=== PATIENT | female | born 1970 | race Two or more races ===

== ENCOUNTER 2023-08-30 14:19 | Inpatient (IN) | payer BC, OTHER ==
[~2023-08-30] VITALS: Ht 154.9 cm; Wt 78.4 kg
[2023-08-30 15:53] LABS: Basophils # (auto) 0.1 10 ^3/uL (0-0.2); Basophils % (auto) 0.8 % (0.0-2.0); Eosinophils # (auto) 0 10 ^3/uL (0-0.8); Eosinophils % (auto) 0.6 % (0.0-7.0); Hemoglobin 14.8 g/dL (12.2-16.2); Lymphocytes # (auto) 1.4 10 ^3/uL (0.4-5.4); Lymphocytes % (auto) 17.8 % (10.0-50.0); Mean Corpuscular Hemoglobin 30.1 pg (28.0-32.0); Mean Corpuscular Hgb Conc. 34.3 g/dL (32.0-36.0); Mean Corpuscular Volume 87.8 fL (80.0-100.0); Monocytes # (auto) 0.4 10 ^3/uL (0-1.3); Monocytes % (auto) 4.5 % (0.0-12.0); Neutrophils # (auto) 6.1 10 ^3/uL (1.6-8.6); Neutrophils % (auto) 76.3 % (37.0-80.0); Nucleated Red Blood Cells % 0.1 %; Red Cell Distribution Width 12.7 % (11.8-14.3)
[2023-08-30 15:55] LABS: Urine Amorphous Crystal FEW /hpf (None Seen); Urine Bacteria FEW /hpf (None Seen); Urine Blood Negative /uL (Negative); Urine Clarity Turbid (Clear); Urine Color Colorless (Yellow); Urine Protein, UAD Negative (Negative); Urine Specific Gravity 1.002 (1.001-1.035); Urine Urobilinogen Normal (Negative); Urine WBC 5 /hpf (0 - 5)
[2023-08-30 16:13] LABS: Alanine Aminotransferase 20 U/L (7-40); Alkaline Phosphatase 107 U/L (46-116); Anion Gap 7 (5-15); Aspartate Aminotransferase 18 U/L (13-40); BUN/Creatinine Ratio 12.5 (10.0-20.0); Blood Urea Nitrogen 8 mg/dL (9-23); Calcium 9.9 mg/dL (8.5-10.1); Carbon Dioxide 27 mmol/L (20-30); Chloride 107 mmol/L (98-107); Glucose 107 mg/dL (74-106); Potassium 3.5 mmol/L (3.5-5.1); Sodium 141 mmol/L (136-145); Total Protein 8.2 g/dL (5.7-8.2)
[2023-08-30] MEDS ORDERED: MORPHINE SULFATE INJ 2 MG/ml SYRG IV PRN (21:15)
[2023-08-30] MEDS ORDERED: NITROGLYCERIN 0.4 MG SL TAB SL PRN (21:15)
[2023-08-30] MEDS: ASPirin 325 MG TAB PO ONE (21:40)
[2023-08-30] MEDS: ONDANSETRON HCL 4 MG/2 ML VIAL IV PRN (23:17)
[2023-08-30] MEDS: METOPROLOL SUCCINATE XL 50 MG TAB PO ONE (23:27)
[2023-08-31] VITALS (9 sets, daily range): BP systolic 104–128; BP diastolic 66–72; PULSE 57–77; RESP 16–18; TEMP 97.5–98.1; O2SAT 93–100
[2023-08-31] MEDS ORDERED: CLON0.1T PO (03:18)
[2023-08-31] MEDS ORDERED: SERT25TA84 PO (03:18)
[2023-08-31 07:12] LABS: Anion Gap 7 (5-15); Calcium 9.7 mg/dL (8.7-10.4); Carbon Dioxide 25 mmol/L (20-30); Chloride 106 mmol/L (98-107); Potassium 3.5 mmol/L (3.5-5.1); Sodium 138 mmol/L (136-145)
[2023-08-31 07:18] LABS: BUN/Creatinine Ratio 11.6 (10.0-20.0); Blood Urea Nitrogen 8 mg/dL (9-23); Glucose 97 mg/dL (74-106)
[2023-08-31] MEDS: ENOXAPARIN SOD 40 MG/0.4 ML SYRINGE SC SCH (09:07)
[2023-08-31] MEDS: LISINOPRIL 5 MG TAB PO SCH (09:08)
[2023-08-31] MEDS: ASPirin 81 mg TAB PO SCH (09:08)
[2023-08-31] MEDS: ACETAMINOPHEN 325 MG TAB PO PRN (09:08)
[2023-09-01] VITALS (7 sets, daily range): BP systolic 98–132; BP diastolic 60–83; PULSE 56–84; RESP 16–18; TEMP 97.5–98.1; O2SAT 96–98
[2023-09-01 07:30] LABS: Triglycerides 104 mg/dL (< 150)
[2023-09-01 07:31] LABS: LDL Cholesterol 103 mg/dL (< 100)
[2023-09-01 07:32] LABS: Cholesterol 154 mg/dL (< 200); HDL Cholesterol 36 mg/dL (40-59)
[2023-09-01] MEDS: SERTRALINE HCL 50 MG TAB PO SCH (10:00)
[2023-09-01] MEDS: ADENOSINE 66 MG in GIVE UN-DILUTED 0 ML IV ONE (10:09)
[2023-09-02 01:00] VITALS: BP 121/76; PULSE 67; RESP 18; TEMP 98.1; O2SAT 97
[2023-09-02 05:00] VITALS: BP 122/74; PULSE 76; RESP 17; TEMP 97.6; O2SAT 99
[2023-09-02 08:00] VITALS: BP_SYST 115; BP_SYST 132; BP_DIAS 72; BP_DIAS 83; PULSE 78; PULSE 83; PULSE 87; RESP 17; RESP 18; TEMP 97.9; TEMP 98.1; O2SAT 97
[2023-09-02] MEDS ORDERED: LISI10TA34 PO ×2 (10:21→11:27)
[2023-09-02 13:00] VITALS: BP 109/71; PULSE 66; RESP 18; TEMP 97.6; O2SAT 97
[2023-09-02 13:58] VITALS: BP 115/72; PULSE 80; TEMP 97.9
== END 2023-09-02 14:58 | disposition home or self-care (01) | DRG 313 ==
LOC: ER 14:19 → TELE-CENTR 21:13 → TELE 21:13 → TELE-CENTR 23:59
PROVIDERS: ADMIT Nurse Practitioner; ATTEND Internal Medicine Geriatric Medicine
DX: R07.89 Other chest pain (principal); I20.0 Unstable angina; R00.2 Palpitations; I10 Essential (primary) hypertension; E66.9 Obesity, unspecified; E78.5 Hyperlipidemia, unspecified; Z90.49 Acquired absence of other specified parts of digestive tract; Z82.49 Family history of ischemic heart disease and other diseases of the circulatory system; Z83.3 Family history of diabetes mellitus; Z79.899 Other long term (current) drug therapy; Z68.32 Body mass index [BMI] 32.0-32.9, adult
CPT/HCPCS: 36415; 71045; 78452; 80048; 80053; 80061; 81001; 81025; 84443; 84484; 85025; 93005; 93017; 93306; G0378; J0153; J2405

== ENCOUNTER 2023-10-06 03:54 | Emergency (ER) | payer BC ==
[~2023-10-06] VITALS: Ht 154.9 cm; Wt 78.5 kg
[~2023-10-06 03:54] MED LIST: LISI10TA34 PO; SERT25TA84 PO
[2023-10-06 05:17] LABS: Urine Bacteria FEW /hpf (None Seen); Urine Blood Negative /uL (Negative); Urine Clarity Clear (Clear); Urine Color Light-Yellow (Yellow); Urine Protein, UAD Negative (Negative); Urine Specific Gravity 1.007 (1.001-1.035); Urine Urobilinogen Normal (Negative); Urine WBC 1 /hpf (0 - 5)
[2023-10-06 05:34] LABS: Basophils # (auto) 0 10 ^3/uL (0-0.2); Basophils % (auto) 0.7 % (0.0-2.0); Eosinophils # (auto) 0.1 10 ^3/uL (0-0.8); Eosinophils % (auto) 1.8 % (0.0-7.0); Hematocrit 39.9 % (36.0-46.0); Hemoglobin 13.5 g/dL (12.2-16.2); Lymphocytes # (auto) 1.7 10 ^3/uL (0.4-5.4); Lymphocytes % (auto) 28.1 % (10.0-50.0); Mean Corpuscular Hemoglobin 29.7 pg (28.0-32.0); Mean Corpuscular Hgb Conc. 33.7 g/dL (32.0-36.0); Mean Corpuscular Volume 88.1 fL (80.0-100.0); Monocytes # (auto) 0.4 10 ^3/uL (0-1.3); Monocytes % (auto) 5.9 % (0.0-12.0); Neutrophils # (auto) 3.8 10 ^3/uL (1.6-8.6); Neutrophils % (auto) 63.5 % (37.0-80.0); Nucleated Red Blood Cells % 0.1 %; Red Blood Cells 4.53 10^6/uL (4.0-5.20); Red Cell Distribution Width 13.6 % (11.8-14.3)
[2023-10-06 05:44] LABS: INR 1.04 (0.9-1.15); Partial Thromboplastin Time 32.2 SEC (24.5-34.5)
[2023-10-06 05:46] LABS: Alanine Aminotransferase 15 U/L (7-40); Albumin 4.5 g/dL (3.2-4.8); Alkaline Phosphatase 81 U/L (46-116); Anion Gap 5 (5-15); Aspartate Aminotransferase 12 U/L (13-40); BUN/Creatinine Ratio 10.1 (10.0-20.0); Bilirubin, Total 0.7 mg/dL (0.2-1.0); Blood Urea Nitrogen 7 mg/dL (9-23); Calcium 9.7 mg/dL (8.7-10.4); Carbon Dioxide 27 mmol/L (20-30); Chloride 110 mmol/L (98-107); Glucose 109 mg/dL (74-106); Lipase 29 U/L (12-53); Potassium 3.7 mmol/L (3.5-5.1); Sodium 142 mmol/L (136-145); Total Protein 7.1 g/dL (5.7-8.2)
[2023-10-06 06:35] VITALS: BP 138/78; PULSE 67; RESP 22; TEMP 97.8; O2SAT 97
[2023-10-06] MEDS ORDERED: TRAM50TA2 PO (07:13)
[2023-10-06] MEDS: MORPHINE SULFATE 4 MG/ML SYR/VIAL IV ONE (07:26)
[2023-10-06] MEDS: ONDANSETRON HCL 4 MG/2 ML VIAL IV ONE (07:26)
== END 2023-10-06 07:25 | disposition home or self-care (01) ==
LOC: ER 03:54
DX: R10.11 Right upper quadrant pain (principal); R10.2 Pelvic and perineal pain; E11.9 Type 2 diabetes mellitus without complications; I10 Essential (primary) hypertension; Z90.49 Acquired absence of other specified parts of digestive tract; Z79.899 Other long term (current) drug therapy
CPT/HCPCS: 36415; 74176; 80053; 81001; 83690; 84484; 84702; 85025; 85610; 85730

== ENCOUNTER → 2023-10-20 | Outpatient (CLI) | payer BC ==
[~2023-10-20] MED LIST changes: +TRAM50TA2 PO
[2023-10-20 09:09] LABS: Urine Bacteria None Seen /hpf (None Seen)
[2023-10-20 09:26] LABS: Urine Blood Negative /uL (Negative); Urine Clarity Turbid (Clear); Urine Color Light-Yellow (Yellow); Urine Mucus FEW (None Seen); Urine Protein, UAD Negative (Negative); Urine Urobilinogen Normal (Negative); Urine WBC 1 /hpf (0 - 5)
[2023-10-20 10:01] LABS: Creatinine, Urine 102.55 mg/dL (30.0-125.0)
[2023-10-20 10:04] LABS: Cholesterol 183 mg/dL (< 200); Triglycerides 178 mg/dL (< 150)
[2023-10-20 10:05] LABS: HDL Cholesterol 44 mg/dL (40-59); LDL Cholesterol 116 mg/dL (< 100)
== END | disposition home or self-care (01) ==
LOC: LAB 09:03
PROVIDERS: ATTEND Internal Medicine
DX: Z12.11 Encounter for screening for malignant neoplasm of colon (principal); R73.03 Prediabetes; E55.9 Vitamin D deficiency, unspecified; E78.5 Hyperlipidemia, unspecified
CPT/HCPCS: 36415; 80061; 81001; 82043; 82270; 82570; 83036

== ENCOUNTER 2023-11-28 07:16 | Emergency (ER) | payer BC ==
[~2023-11-28] VITALS: Ht 154.9 cm; Wt 81.4 kg
[2023-11-28 07:23] VITALS: RESP 16; O2SAT 98
[2023-11-28 07:34] VITALS: BP 149/87; PULSE 75
[2023-11-28] MEDS ORDERED: MEPERIDINE HCL (50 MG/ML) 1 ML VIAL ONE (07:36)
[2023-11-28] MEDS ORDERED: MIDAZOLAM HCL 2MG/2ML 2ml VIAL (1mg/ml) ONE (07:36)
[2023-11-28] MEDS ORDERED: fentaNYL CITRATE 100 MCG/2 ML VL ONE (07:36)
[2023-11-28] MEDS: SODIUM CHLORIDE 0.9% 1,000 ML IV ONE (07:45)
[2023-11-28 07:51] LABS: Basophils # (auto) 0.1 10 ^3/uL (0-0.2); Eosinophils # (auto) 0.1 10 ^3/uL (0-0.8); Eosinophils % (auto) 1.9 % (0.0-7.0); Hematocrit 41.6 % (36.0-46.0); Hemoglobin 14.2 g/dL (12.2-16.2); Lymphocytes # (auto) 1.7 10 ^3/uL (0.4-5.4); Lymphocytes % (auto) 26.7 % (10.0-50.0); Mean Corpuscular Hemoglobin 30.9 pg (28.0-32.0); Mean Corpuscular Hgb Conc. 34.1 g/dL (32.0-36.0); Mean Corpuscular Volume 90.5 fL (80.0-100.0); Monocytes # (auto) 0.3 10 ^3/uL (0-1.3); Monocytes % (auto) 4.9 % (0.0-12.0); Neutrophils # (auto) 4.1 10 ^3/uL (1.6-8.6); Neutrophils % (auto) 65.5 % (37.0-80.0); Nucleated Red Blood Cells % 0.1 %; Red Blood Cells 4.59 10^6/uL (4.0-5.20); Red Cell Distribution Width 13.9 % (11.8-14.3); White Blood Cell 6.3 10^3/uL (4.4-10.8)
[2023-11-28 08:00] LABS: Chloride 110 mmol/L (98-107); Sodium 140 mmol/L (136-145)
[2023-11-28 08:01] LABS: Anion Gap 6 (5-15); Calcium 9.5 mg/dL (8.7-10.4); Carbon Dioxide 24 mmol/L (20-30)
[2023-11-28 08:06] LABS: BUN/Creatinine Ratio 8.8 (10.0-20.0); Blood Urea Nitrogen 6 mg/dL (9-23); Glucose 116 mg/dL (74-106)
[2023-11-28 08:07] LABS: Urine Bacteria MOD /hpf (None Seen); Urine Blood Negative /uL (Negative); Urine Clarity Turbid (Clear); Urine Protein, UAD 1+ (Negative); Urine Specific Gravity 1.003 (1.001-1.035); Urine Urobilinogen Normal (Negative); Urine WBC 4 /hpf (0 - 5)
[2023-11-28] MEDS ORDERED: DexAMETHasone SOD PHOS 10MG/1ML VIAL INJ ONE (08:07)
[2023-11-28] MEDS ORDERED: PROPOFOL 10 MG/ML 20 ML IV ONE (08:07)
[2023-11-28 08:11] LABS: Urine Color STRAW (Yellow)
[2023-11-28] MEDS ORDERED: SUGAMMADEX 200mg/2ml Vial (100MG/ML) IV ONE (08:32)
== END 2023-11-28 09:02 | disposition left against medical advice (07) ==
LOC: ER 07:16
DX: R00.2 Palpitations (principal); R42 Dizziness and giddiness; I10 Essential (primary) hypertension; E11.9 Type 2 diabetes mellitus without complications; Z90.49 Acquired absence of other specified parts of digestive tract; Z53.29 Procedure and treatment not carried out because of patient's decision for other reasons
CPT/HCPCS: 36415; 80048; 81001; 82962; 84484; 85025; 93005; 96360; J1100; J2250; J2704

== ENCOUNTER 2023-12-11 20:06 | Emergency (ER) | payer BC ==
[~2023-12-11] VITALS: Ht 154.9 cm; Wt 82.2 kg
[2023-12-11 23:00] VITALS: BP 119/77; PULSE 68; RESP 16; TEMP 97.8; O2SAT 98
[2023-12-11] MEDS: ACETAMINOPHEN 325 MG TAB PO ONE (23:18)
== END 2023-12-11 23:23 | disposition home or self-care (01) ==
LOC: ER 20:06
DX: G44.209 Tension-type headache, unspecified, not intractable (principal); Z90.49 Acquired absence of other specified parts of digestive tract; E11.9 Type 2 diabetes mellitus without complications; I10 Essential (primary) hypertension
CPT/HCPCS: 70450; 71045

== ENCOUNTER 2023-12-31 20:02 | Inpatient (IN) | payer BC ==
[~2023-12-31] VITALS: Ht 157.5 cm; Wt 79.2 kg
[2023-12-31] MEDS: cloNIDine HCL 0.1 MG TAB PO ONE (20:15)
[2023-12-31 20:26] LABS: Basophils # (auto) 0 10 ^3/uL (0-0.2); Basophils % (auto) 0.7 % (0.0-2.0); Eosinophils # (auto) 0.1 10 ^3/uL (0-0.8); Eosinophils % (auto) 2.1 % (0.0-7.0); Hematocrit 41.1 % (36.0-46.0); Hemoglobin 13.8 g/dL (12.2-16.2); Lymphocytes # (auto) 1.8 10 ^3/uL (0.4-5.4); Lymphocytes % (auto) 26.8 % (10.0-50.0); Mean Corpuscular Hemoglobin 30.5 pg (28.0-32.0); Mean Corpuscular Hgb Conc. 33.6 g/dL (32.0-36.0); Mean Corpuscular Volume 90.6 fL (80.0-100.0); Monocytes # (auto) 0.5 10 ^3/uL (0-1.3); Monocytes % (auto) 7.7 % (0.0-12.0); Neutrophils # (auto) 4.2 10 ^3/uL (1.6-8.6); Neutrophils % (auto) 62.7 % (37.0-80.0); Nucleated Red Blood Cells % 0.1 %; Platelet Count (auto) 187 10^3/uL (140-450); Red Blood Cells 4.54 10^6/uL (4.0-5.20); White Blood Cell 6.8 10^3/uL (4.4-10.8)
[2023-12-31 21:01] LABS: Chloride 110 mmol/L (98-107); Potassium 3.6 mmol/L (3.5-5.1); Sodium 141 mmol/L (136-145)
[2023-12-31 21:02] LABS: Anion Gap 6 (5-15); Calcium 9.6 mg/dL (8.7-10.4); Carbon Dioxide 25 mmol/L (20-30)
[2023-12-31 21:07] LABS: BUN/Creatinine Ratio 9.4 (10.0-20.0); Blood Urea Nitrogen 11 mg/dL (9-23); Glucose 110 mg/dL (74-106)
[2023-12-31 21:51] VITALS: PULSE 70; RESP 14; O2SAT 96
[2023-12-31] MEDS ORDERED: DEXTROSE (50%) 50ML SYRG IV PRN (22:00)
[2023-12-31] MEDS: InsuLIN REG 1unit/0.01ml Soln (100units/ml) SC SCH (22:00)
[2023-12-31] MEDS ORDERED: NITROGLYCERIN 0.4 MG SL TAB SL PRN (22:00)
[2023-12-31] MEDS ORDERED: ONDANSETRON HCL 4 MG/2 ML VIAL IV PRN (22:00)
[2023-12-31] MEDS: APIXABAN 5 MG TAB PO SCH (22:00)
[2023-12-31] MEDS ORDERED: MORPHINE SULFATE INJ 2 MG/ml SYRG IV PRN (22:00)
[2023-12-31] MEDS ORDERED: cloNIDine HCL 0.1 MG TAB PO PRN (22:00)
[2023-12-31] MEDS: ATORVASTATIN 20 MG TAB PO SCH (22:00)
[2023-12-31] MEDS: ASPirin 325 MG TAB PO ONE (22:20)
[2023-12-31] MEDS: ACETAMINOPHEN 325 MG TAB PO PRN (22:21)
[2023-12-31] MEDS: ACCU-CHEK COMFORT CURVE STRIP VI SCH (22:24)
[2023-12-31 23:42] LABS: Urine Bacteria FEW /hpf (None Seen); Urine Blood Negative /uL (Negative); Urine Clarity Clear (Clear); Urine Color Light-Yellow (Yellow); Urine Protein, UAD Negative (Negative); Urine Specific Gravity 1.012 (1.001-1.035); Urine Urobilinogen Normal (Negative); Urine WBC 3 /hpf (0 - 5); Urine pH 5.5 (5.0-9.0)
[2024-01-01 04:47] LABS: Basophils # (auto) 0.1 10 ^3/uL (0-0.2); Basophils % (auto) 0.8 % (0.0-2.0); Eosinophils # (auto) 0.1 10 ^3/uL (0-0.8); Hematocrit 38.8 % (36.0-46.0); Hemoglobin 13.1 g/dL (12.2-16.2); Lymphocytes # (auto) 2.1 10 ^3/uL (0.4-5.4); Lymphocytes % (auto) 32.7 % (10.0-50.0); Mean Corpuscular Hemoglobin 30.5 pg (28.0-32.0); Mean Corpuscular Hgb Conc. 33.8 g/dL (32.0-36.0); Mean Corpuscular Volume 90.2 fL (80.0-100.0); Monocytes # (auto) 0.5 10 ^3/uL (0-1.3); Monocytes % (auto) 8.5 % (0.0-12.0); Neutrophils # (auto) 3.5 10 ^3/uL (1.6-8.6); Platelet Count (auto) 177 10^3/uL (140-450); Red Cell Distribution Width 13.4 % (11.8-14.3); White Blood Cell 6.3 10^3/uL (4.4-10.8)
[2024-01-01 04:59] LABS: Chloride 110 mmol/L (98-107); Potassium 3.8 mmol/L (3.5-5.1); Sodium 141 mmol/L (136-145)
[2024-01-01 05:00] LABS: Anion Gap 6 (5-15); Carbon Dioxide 25 mmol/L (20-30)
[2024-01-01 05:01] LABS: Calcium 8.9 mg/dL (8.7-10.4)
[2024-01-01 05:06] LABS: BUN/Creatinine Ratio 13.3 (10.0-20.0); Blood Urea Nitrogen 11 mg/dL (9-23); Glucose 97 mg/dL (74-106)
[2024-01-01] MEDS: PANTOPRAZOLE 40 MG TAB PO SCH (05:34)
[2024-01-01 07:50] VITALS: PULSE 52; RESP 15; O2SAT 96
[2024-01-01] MEDS: ASPirin 81 mg TAB PO SCH (09:58)
[2024-01-01] MEDS: LISINOPRIL 5 MG TAB PO SCH (10:00)
[2024-01-01 11:03] VITALS: TEMP 98
[2024-01-01] MEDS: ADENOSINE 67 MG in GIVE UN-DILUTED 0 ML IV STA (14:38)
[2024-01-01 16:00] VITALS: BP 136/66; PULSE 60; RESP 16; O2SAT 99
== END 2024-01-02 17:25 | disposition left against medical advice (07) | DRG 313 ==
LOC: ER 20:02 → TELE 21:57
PROVIDERS: ADMIT Nurse Practitioner; ATTEND Nurse Practitioner Acute Care
DX: R07.89 Other chest pain (principal); D68.9 Coagulation defect, unspecified; I10 Essential (primary) hypertension; Z53.29 Procedure and treatment not carried out because of patient's decision for other reasons; M19.09 Primary osteoarthritis, other specified site; E11.9 Type 2 diabetes mellitus without complications; Z83.3 Family history of diabetes mellitus; Z82.49 Family history of ischemic heart disease and other diseases of the circulatory system; Z86.718 Personal history of other venous thrombosis and embolism; Z79.4 Long term (current) use of insulin
CPT/HCPCS: 36415; 71045; 80048; 81001; 81025; 82962; 83880; 84484; 85025; 93005; 93306; 99291; G0378; J0153

== ENCOUNTER 2024-03-04 22:02 | Emergency (ER) | payer BC ==
[~2024-03-04] VITALS: Ht 154.9 cm; Wt 78.0 kg
[2024-03-04 22:43] LABS: Urine Bacteria MOD /hpf (None Seen); Urine Blood Negative /uL (Negative); Urine Clarity Clear (Clear); Urine Color Colorless (Yellow); Urine Protein, UAD Negative (Negative); Urine Specific Gravity 1.003 (1.001-1.035); Urine Urobilinogen Normal (Negative); Urine WBC 2 /hpf (0 - 5)
[2024-03-05 00:15] VITALS: BP 129/77; PULSE 62; RESP 18; TEMP 98.7; O2SAT 97
== END 2024-03-05 00:16 | disposition home or self-care (01) ==
LOC: ER 22:02
DX: I10 Essential (primary) hypertension (principal); T50.905A Adverse effect of unspecified drugs, medicaments and biological substances, initial encounter; E11.9 Type 2 diabetes mellitus without complications; Z79.899 Other long term (current) drug therapy; Z90.49 Acquired absence of other specified parts of digestive tract; Y92.89 Other specified places as the place of occurrence of the external cause
CPT/HCPCS: 81001

== ENCOUNTER 2024-04-17 13:28 | Emergency (ER) | payer BC ==
[~2024-04-17] VITALS: Ht 154.9 cm; Wt 75.7 kg
--- NOTE | 2024-04-17 15:41 | ED.PDOC ---
History of Present Illness HPI Comments 53 y/o F, with a Hx of LLE DVT, HTN?, and obesity, presents with c/o left leg pain, today. Patient endorses on unprovoked and sudden onset of pain, this morning, with associated fatigue sensation. Patient comments on pain being localized to her calf and the posterior side of her thigh, where she states on being the same area where she was found with a DVT in November 2023. Patient admits current 5mg Eliquis BID placement and compliance since aforementioned DVT discovery. She endorses no recent injuries or substance use/exposure. Patient denies having any chest pain, shortness of breath, numbness, tingling, weakness, or other associated symptoms or modifiers at this time. Chief Complaint: Lower Extremity Time Seen by MD: 15:20 Primary Care Provider: Anaya Salomon Notes: Nurses Notes, Medications, Allergies Allergies: Coded Allergies: NO KNOWN ALLERGIES (Unverified , 08/30/23) Home Meds Active Scripts Tramadol Hcl (Tramadol Hcl) 50 Mg Tab, 50 MG PO Q8HP PRN for 5 Days, #15 TAB Prov:ROSA DYER MD 10/06/23 Lisinopril (Lisinopril) 10 Mg Tab, 10 MG PO DAILY, #30 TAB Prov:JAI LANIER MD 09/02/23 Reported Medications Sertraline Hcl (Zoloft) 25 Mg Tab, 25 MG PO DAILY, TAB 08/31/23 Information Source: Patient Mode of Arrival: Ambulatory Severity: Moderate Timing: Hours Duration: Since onset Prehospital treatment: None Past Medical History PAST MEDICAL HISTORY: HTN Past Medical History (Other): LLE DVT, obesity Surgical History: Cholecystectomy [employer]ER History: Denies all [employer]ER Hx Family History Family History: Reviewed,noncontributory to illness, No family hx of Cancer, No family hx of Heart tashi, No family hx ofKidney tashi, No family hx of Liver tashi, No family hx of Lung tashi, No family hx of Stroke, Family hx of DM, Family hx of HTN Social History Smoker: Non-Smoker Alcohol: Denies ETOH Use Drugs: Denies Drug Use Lives In: Home Constitutional: reports: fatigue; denies: chills, diaphoresis, fever, malaise, sweats, weakness, others EENTM: denies: blurred vision, double vision, ear bleeding, ear discharge, ear drainage, ear pain, ear ringing, eye pain, eye redness, hearing loss, mouth pain, mouth swelling, nasal discharge, nose bleeding, nose congestion, nose pain, photophobia, tearing, throat pain, throat swelling, voice changes, others Respiratory: denies: cough, hemoptysis, orthopnea, SOB at rest, shortness of breath, SOB with excertion, stridor, wheezing, others Cardiovascular: denies: chest pain, dizzy spells, diaphoresis, Dyspnea on e xertion, edema, irregular heart beat, left arm pain, lightheadedness, palpitations, PND, syncope, others Gastrointestinal: denies: abdomen distended, abdominal pain, blood streaked bowels, constipated, diarrhea, dysphagia, difficulty swallowing, hematemesis, melena, nausea, poor appetite, poor fluid intake, rectal bleeding, rectal pain, vomiting, others Genitourinary: denies: abnormal vagina bleeding, burning, dyspareunia, dysuria, flank pain, frequency, hematuria, incontinence, pain, , vagina discharge, urgency, others Neurological: denies: dizziness, fainting, headache, left sided numbness, left sided weakness, numbness, paresthesia, pre-existing deficit, right sided numbness, right sided weakness, seizure, speech problems, tingling, tremors, weakness, others Musculoskeletal: reports: others (leg pain ); denies: back pain, gout, joint pain, joint swelling, muscle pain, muscle stiffness, neck pain Integumetry: denies: bruises, change in color, change in hair/nails, dryness, laceration, lesions, lumps, rash, wounds, others Allergic/Immunocompromised: denies: Difficulty Healing, Frequent Infections, Hives, Itching, others Hematologic/Lymphatic: denies: anemia, blood clots, easy bleeding, easy bruising, swollen glands, others Endocrine: denies: excessive hunger, excessive sweating, excessive thirst, excessive urination, flushing, intolerance to cold, intolerance to heat, unexplained weight gain, unexplained weight loss, others Psychiatric: denies: anxiety, bipolar disorder, depression, hopeless, panic disorder, schizophrenia, sleepless, suicidal, others All Other Systems: Reviewed and Negative Physical Exam General Appearance: No Apparent Distress HEENT: Normal ENT Inspection, Pharynx Normal, TMs Normal Neck: Full Range of Motion, Non-Tender, Normal, Normal Inspection Respiratory: Chest Non-Tender, Lungs Clear, No Accessory Muscle Use, No Respiratory Distress, Normal Breath Sounds Cardiovascular: No Edema, No JVD, No Murmur, No Gallop, Normal Peripheral Pulses, Regular Rate/Rhythm Breast Exam: Deferred Gastrointestinal: No Organomegaly, Non Tender, No Pulsatile Mass, Normal Bowel Sounds, Soft Genitalia: Deferred Pelvic: Deferred Rectal: Deferred Extremities: No calf tenderness, Normal capillary refill, Normal inspection, Normal range of motion, Non-tender, No pedal edema Musculoskeletal : Apperance: Normal Neurologic: Alert, 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 Was a procedure done?: No Differential Dx Considerations may include: DVT, musculoskeletal pain, sprain, fracture, dislocation, contusions X-Ray, Labs, Meds, VS Vital Signs Date Time Temp Pulse Resp B/P (MAP) Pulse Ox O2 Delivery O2 Flow Rate FiO2 04/17/24 13:46 97.8 71 18 138/71 (93) 98 PROCEDURE(s): LLDVT - LT Lower DVT Impression: 1. No sonographic evidence of deep venous thrombosis throughout the left lower extremity from the popliteal vein to the common femoral vein. The patient was being discharged and will follow up with the primary care doctor The patient will return to the emergency department's the condition worsens. Images Reviewed?: Images reviewed and evaluated by me Time of 1ST Reevaluation: 15:50 Reevaluation 1ST: Unchanged Patient Education/Counseling: Diagnosis, Treatment, Prognosis, Need For Follow Up Family Education/Counseling: No Family Present Departure 1 Departure Time of Disposition: 16:27 Impression: Primary Impression: Left leg pain Disposition: 01 HOME / SELF CARE / HOMELESS Condition: Fair Discharged With: Self Critical Care Note Critical Care Time?: No Stability Stability form required: No Heart Score Heart Score: Heart Score Response (Comments) Value History N/A 0 EKG N/A 0 Age N/A 0 Risk Factors N/A 0 Troponin N/A 0 Total 0 I personally scribed for ROSA DYER MD ([email or web address]) on 04/17/24 at 15:41. Electronically submitted by [employer] ([email or web address]). I personally scribed for ROSA DYER MD ([email or web address]) on 04/17/24 at 16:14. E lectronically submitted by [employer] ([email or web address]). ROSA DYER MD Apr 17, 2024 15:41
--- NOTE | 2024-04-17 16:04 | DVH ---
EXAM: US LT LOWER DVT Clinical History: pain Comparison: None Technique: Duplex Doppler evaluation of the deep venous systems of the left lower extremity from the common femo ral veins to the popliteal veins including color Doppler and spectral/pulsed waveform analysis was pe rformed. Findings: No visible intraluminal venous thrombus. No evidence of incompressibility or abnormal color or spectr al Doppler flow visualized in the deep left lower extremity veins. Proximal greater saphenous vein is grossly unremarkable. 1.9 cm Ortiz's cyst in the left popliteal fossa. Impression: 1. No sonographic evidence of deep venous thrombosis throughout the left lower extremity from the pop liteal vein to the common femoral vein.
[2024-04-17 16:58] VITALS: BP 137/68; PULSE 87; RESP 17; TEMP 98.7; O2SAT 97
== END 2024-04-17 17:01 | disposition home or self-care (01) ==
LOC: ER 13:28
DX: M79.605 Pain in left leg (principal); I10 Essential (primary) hypertension; E66.9 Obesity, unspecified; Z79.899 Other long term (current) drug therapy; Z86.718 Personal history of other venous thrombosis and embolism; Z90.49 Acquired absence of other specified parts of digestive tract; Z98.890 Other specified postprocedural states
CPT/HCPCS: 93971

== ENCOUNTER → 2024-04-24 | Outpatient (CLI) | payer BC ==
[2024-04-24 08:16] LABS: Triglycerides 106 mg/dL (< 150)
[2024-04-24 08:17] LABS: LDL Cholesterol 86 mg/dL (< 100)
[2024-04-24 08:18] LABS: Cholesterol 149 mg/dL (< 200); HDL Cholesterol 44 mg/dL (40-59)
== END | disposition home or self-care (01) ==
LOC: LAB 07:42
PROVIDERS: ATTEND Internal Medicine
DX: E04.1 Nontoxic single thyroid nodule (principal); E78.5 Hyperlipidemia, unspecified; R73.03 Prediabetes
CPT/HCPCS: 36415; 80061; 83036

== ENCOUNTER 2024-10-17 09:45 | Inpatient (IN) | payer BC ==
[~2024-10-17] VITALS: Ht 154.9 cm; Wt 75.0 kg
--- NOTE | 2024-10-17 10:13 | ECG ---
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
[2024-10-17 10:22] LABS: Basophils # (auto) 0.1 10 ^3/uL (0-0.2); Basophils % (auto) 0.9 % (0.0-2.0); Eosinophils # (auto) 0.1 10 ^3/uL (0-0.8); Eosinophils % (auto) 1.8 % (0.0-7.0); Hematocrit 41.2 % (36.0-46.0); Hemoglobin 14.2 g/dL (12.2-16.2); Lymphocytes # (auto) 1.8 10 ^3/uL (0.4-5.4); Lymphocytes % (auto) 24.8 % (10.0-50.0); Mean Corpuscular Hemoglobin 31.1 pg (28.0-32.0); Mean Corpuscular Hgb Conc. 34.5 g/dL (32.0-36.0); Mean Corpuscular Volume 90.1 fL (80.0-100.0); Monocytes # (auto) 0.4 10 ^3/uL (0-1.3); Neutrophils # (auto) 4.9 10 ^3/uL (1.6-8.6); Neutrophils % (auto) 66.5 % (37.0-80.0); Nucleated Red Blood Cells % 0.1 %; Platelet Count (auto) 218 10^3/uL (140-450); Potassium 3.7 mmol/L (3.5-5.1); Red Blood Cells 4.57 10^6/uL (4.0-5.20); Red Cell Distribution Width 13.5 % (11.8-14.3); Sodium 140 mmol/L (136-145); White Blood Cell 7.4 10^3/uL (4.4-10.8)
[2024-10-17 10:22] LABS: Urine Bacteria FEW /hpf (None Seen); Urine Blood 2+ /uL (Negative); Urine Clarity Turbid (Clear); Urine Color Light-Yellow (Yellow); Urine Protein, UAD Negative (Negative); Urine Specific Gravity 1.013 (1.001-1.035); Urine Squamous Epithelial Cell MOD /hpf (<5); Urine Urobilinogen Normal (Negative); Urine WBC 10 /HPF (0-5); Urine pH 6.5 (5.0-9.0)
[2024-10-17 10:23] LABS: Anion Gap 6 (5-15); Calcium 9.9 mg/dL (8.7-10.4); Carbon Dioxide 25 mmol/L (20-31)
--- NOTE | 2024-10-17 10:25 | ED.PDOC ---
HPI Comments 54 y.o female with PMHx of Thyroid nodule, presents to the ED for a chief complaint of palpitations x 2 days associated with a generalized headache and lightheadedness x today. Patient reports symptoms came onset spontaneously at rest with no previous history or cardiac issues. Patient denies any chest pain, fever, chills, leg swelling, SOB, nausea, or vomiting. Patient also denies substance, alcohol or tobacco use. Chief Complaint: Palpitations Time Seen by MD: 09:50 Primary Care Provider: Anaya Reviewed Notes: Nurses Notes, Medications, Allergies Allergies: Coded Allergies: NO KNOWN ALLERGIES (Unverified , 08/30/23) Home Meds Active Scripts Tramadol Hcl (Tramadol Hcl) 50 Mg Tab, 50 MG PO Q8HP PRN for 5 Days, #15 TAB Prov:ROSA DYER MD 10/06/23 Lisinopril (Lisinopril) 10 Mg Tab, 10 MG PO DAILY, #30 TAB Prov:JAI LANIER MD 09/02/23 Reported Medications Sertraline Hcl (Zoloft) 25 Mg Tab, 25 MG PO DAILY, TAB 08/31/23 Information Source: Patient Mode of Arrival: EMS Severity: Moderate Timing: Days (2) Duration: Since onset Onset: At Rest Cardiac Risk Factors: None PE Risk Factors: None History of: None Modifying Factors: Nothing Associated Signs and Symptoms: Palpitations, Other Past Medical History PAST MEDICAL HISTORY: Thyroid Surgical History: Cholecystectomy [employer] History: Denies all [employer] Hx Family History Family History: Reviewed,noncontributory to illness, No family hx of Cancer, No family hx of Heart tashi, No family hx ofKidney tashi, No family hx of Liver tashi, No family hx of Lung tashi, No family hx of Stroke, Family hx of DM, Family hx of HTN Social History Smoker: Non-Smoker Alcohol: Denies ETOH Use Drugs: Denies Drug Use Lives In: Home Constitutional: denies: chills, diaphoresis, fatigue, fever, malaise, sweats, weakness, others EENTM: denies: blurred vision, double vision, ear bleeding, ear discharge, ear drainage, ear pain, ear ringing, eye pain, eye redness, hearing loss, mouth pain, mouth swelling, nasal discharge, nose bleeding, nose congestion, nose pain, photophobia, tearing, throat pain, throat swelling, voice changes, others Respiratory: denies: cough, hemoptysis, orthopnea, SOB at rest, shortness of breath, SOB with excertion, stridor, wheezing, others Cardiovascular: reports: lightheadedness, palpitations; denies: chest pain, dizzy spells, diaphoresis, Dyspnea on exertion, edema, irregular heart beat, left arm pain, PND, syncope, others Gastrointestinal: denies: abdomen distended, abdominal pain, blood streaked bowels, constipated, diarrhea, dysphagia, difficulty swallowing, hematemesis, melena, nausea, poor appetite, poor fluid intake, rectal bleeding, rectal pain, vomiting, others Genitourinary: denies: abnormal vagina bleeding, burning, dyspareunia, dysuria, flank pain, frequency, hematuria, incontinence, pain, , vagina discharge, urgency, others Neurological: reports: headache; denies: dizziness, fainting, left sided numbness, left sided weakness, numbness, paresthesia, pre-existing deficit, right sided numbness, right sided weakness, seizure, speech problems, tingling, tremors, weakness, others Musculoskeletal: denies: back pain, gout, joint pain, joint swelling, muscle pain, muscle stiffness, neck pain, others Integumetry: denies: bruises, change in color, change in hair/nails, dryness, laceration, lesions, lumps, rash, wounds, others Allergic/Immunocompromised: denies: Difficulty Healing, Frequent Infections, Hives, Itching, others Hematologic/Lymphatic: denies: anemia, blood clots, easy bleeding, easy bruising, swollen glands, others Endocrine: denies: excessive hunger, excessive sweating, excessive thirst, excessive urination, flushing, intolerance to cold, intolerance to heat, unexplained weight gain, unexplained weight loss, others Psychiatric: denies: anxiety, bipolar disorder, depression, hopeless, panic disorder, schizophrenia, sleepless, suicidal, others All Other Systems: Reviewed and Negative Physical Exam General Appearance: Moderate Distress HEENT: Normal ENT Inspection, Pharynx Normal, TMs Normal Neck: Full Range of Motion, Non-Tender, Normal, Normal Inspection Respiratory: Chest Non-Tender, Lungs Clear, No Accessory Muscle Use, No Respiratory Distress, Normal Breath Sounds Cardiovascular: No Edema, No JVD, No Murmur, No Gallop, Normal Peripheral Pulses, Regular Rate/Rhythm Breast Exam: Deferred Gastrointestinal: No Organomegaly, Non Tender, No Pulsatile Mass, Normal Bowel Sounds, Soft Genitalia: Deferred Pelvic: Deferred Rectal: Deferred Extremities: No calf tenderness, Normal capillary refill, Normal inspection, Normal range of motion, Non-tender, No pedal edema Musculoskeletal : Apperance: Normal Neurologic: 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 Was a procedure done?: No CP Differential Dx Differential Diagnosis: A-fib, A-Flutter, Angina, Anxiety / Panic Attack, Atri al Dysrhythmia, Electrolyte Disorder, Sinus Tachycardia X-Ray, Labs, Meds, VS Vital Signs Date Time Temp Pulse Resp B/P (MAP) Pulse Ox O2 Delivery O2 Flow Rate FiO2 10/17/24 10:24 68 10/17/24 09:49 68 Lab Test 10/17/24 10:02 10/17/24 09:57 Range/Units Urine Color Light-yellow Yellow Urine Clarity Turbid H Clear Urine pH 6.5 5.0-9.0 Urine Specific [place] 1.013 1.001-1.035 Urine Protein Negative Negative Urine Ketones Negative Negative Urine Blood 2+ H Negative /uL Urine Nitrite Negative Negative Urine Bilirubin Negative Negative Urine Urobilinogen Normal Negative mg/dL Urine Leukocyte Esterase 3+ Negative /uL Urine RBC 2 0 - 4 /hpf Urine Microscopic WBC 10 H 0-5 /HPF Urine Squamous Epithelial Cells Mod <5 /hpf Urine Bacteria Few H None Seen /hpf Urine Glucose Normal Normal mg/dL White Blood Count 7.4 4.4-10.8 10^3/uL Red Blood Count 4.57 4.0-5.20 10^6/uL Hemoglobin 14.2 12.2-16.2 g/dL Hematocrit 41.2 36.0-46.0 % Mean Corpuscular Volume 90.1 80.0-100.0 fL Mean Corpuscular Hemoglobin 31.1 28.0-32.0 pg Mean Corpuscular Hemoglobin Concent 34.5 32.0-36.0 g/dL Red Cell Distribution Width 13.5 11.8-14.3 % Platelet Count 218 140-450 10^3/uL Mean Platelet Volume 10.3 6.9-10.8 fL Neutrophils (%) (Auto) 66.5 37.0-80.0 % Lymphocytes (%) (Auto) 24.8 10.0-50.0 % Monocytes (%) (Auto) 6.0 0.0-12.0 % Eosinophils (%) (Auto) 1.8 0.0-7.0 % Basophils (%) (Auto) 0.9 0.0-2.0 % Neutrophils # (Auto) 4.9 1.6-8.6 10 ^3/uL Lymphocytes # (Auto) 1.8 0.4-5.4 10 ^3/uL Monocytes # (Auto) 0.4 0-1.3 10 ^3/uL Eosinophils # (Auto) 0.1 0-0.8 10 ^3/uL Basophils # (Auto) 0.1 0-0.2 10 ^3/uL Nucleated Red Blood Cells 0.1 % Sodium Level 140 136-145 mmol/L Potassium Level 3.7 3.5-5.1 mmol/L Chloride Level 109 H 98-107 mmol/L Carbon Dioxide Level 25 20-31 mmol/L Anion Gap 6 5-15 Blood Urea Nitrogen 11 9-23 mg/dL Creatinine 0.68 0.550-1.02 mg/dL Glomerular Filtration Rate Calc 105 >90 mL/min BUN/Creatinine Ratio 16.2 10.0-20.0 Serum Glucose 94 74-106 mg/dL Calcium Level 9.9 8.7-10.4 mg/dL Troponin I High Sensitivity Pending Patient alert. Complaining of palpitations. Has been having these on and off without any workup. Vitals stable. EKG does reveal premature ventricular contractions. WBC within normal limits. Hemoglobin within normal limits. Urinalysis shows UTI. Was given Rocephin. Reviewed her history. Explained to the patient that she will be admitted with Cardiology consultation. Continue monitoring. Time of 1ST Reevaluation: 10:22 Reevaluation 1ST: Unchanged Patient Education/Counseling: Diagnosis, Treatment, Prognosis Family Education/Counseling: No Family Present Departure 1 Departure Time of Disposition: 10:34 Impression: Primary Impression: Palpitations Additional Impressions: UTI (urinary tract infection) Qualified Codes: N30.00 - Acute cystitis without hematuria Hypertension Qualified Codes: I10 - Essential (primary) hypertension Disposition: ADMITTED INPATIENT Admit to: Med Surg Condition: Guarded Critical Care Note Critical Care Time?: No Stability Stability form required: No Heart Score Heart Score: Heart Score Response (Comments) Value History Slightly Suspicious 0 EKG Normal 0 Age 45-64 1 Risk Factors 1 or 2 risk factors 1 Troponin Normal limit 0 Total 2 I personally scribed for VIRGINIA SALAS MD ([email or web address]) on 10/17/24 at 10:24. Electronically submitted by Julianne Keller ([email or web address]). VIRGINIA SALAS MD Oct 17, 2024 10:24
[2024-10-17 10:28] LABS: BUN/Creatinine Ratio 16.2 (10.0-20.0); Blood Urea Nitrogen 11 mg/dL (9-23); Glucose 94 mg/dL (74-106)
[2024-10-17 10:29] LABS: Chloride 109 mmol/L (98-107)
[2024-10-17 10:51] VITALS: PULSE 67; RESP 14; O2SAT 98
[2024-10-17] MEDS: cefTRIAXone 1GM/50ML D5W 50 ML IV ONE (11:11)
[2024-10-17] MEDS: SODIUM CHLORIDE 0.9% 1,000 ML IVB ONE (11:11)
--- NOTE | 2024-10-17 12:14 | DVH ---
EXAM: XY CHEST XRAY 1 VIEW HISTORY: r/o pna COMPARISON: XY CHEST XRAY 1 VIEW on DOS: 12/31/23, XY CHEST XRAY 1 VIEW on DOS: 12/11/23, XY CHEST PORT ABLE on DOS: 08/30/23 TECHNIQUE: PA upright view of the chest was performed. FINDINGS: No pneumothorax, consolidative infiltrates, or pulmonary edema. The heart is not enlarged. There is m ild thoracic spondylosis and dextroscoliosis. IMPRESSION: No acute intrathoracic process.
[2024-10-17] MEDS ORDERED: ACETAMINOPHEN 325 MG TAB PO PRN (13:30)
[2024-10-17] MEDS ORDERED: NITROGLYCERIN 0.4 MG SL TAB SL PRN ×2 (13:30)
[2024-10-17] MEDS ORDERED: ONDANSETRON HCL 4 MG/2 ML VIAL IV PRN (13:30)
[2024-10-17] MEDS ORDERED: MORPHINE SULFATE 4 MG/ML SYR/VIAL IV PRN ×2 (13:30→14:00)
--- NOTE | 2024-10-17 13:31 | DVHHP2 ---
History of Present Illness Reason for Visit: Palpitations History of Present Illness Catherine Valencia is a 54-year-old female with past medical history of hypertension, prediabetes, thyroid nodule, and cholecystectomy who presents to the ED with palpitations with headache and lightheadedness. Patient states that this started Monday. However she endorsed that the palpitations have been ongoing for 4 years. She states that it is on and off but it has been getting worse. Patient also states that her headache is 7/10 and constant. Patient denies any fever, chills, weakness, dizziness, recent travels, recent sick contacts, recent ingestion of spoiled food, recent trauma or injury, shortness of breath, abdominal pain, nausea, vomiting, or diarrhea. Cardiovascular: HTN Past Medical History Prediabetes Thyroid nodule Past Surgical History: Cholecystectomy Family History: DM, Hypertension, Other (Mom with hypertension, diabetes, and thyroid disease), Thyroid disfunction Smoke: No ALCOHOL: none Drugs: None Lives: with Family Domestic Violence: Neg Review of Systems Constitutional: Yes: Other (Headache and lightheadedness) Cardiovascular: Palpitations Allergies: Coded Allergies: NO KNOWN ALLERGIES (Unverified , 08/30/23) Exam Vital Signs Vital Signs Date Time Temp Pulse Resp B/P (MAP) Pulse Ox O2 Delivery O2 Flow Rate FiO2 10/17/24 12:37 97.9 57 16 137/76 (96) 100 97.9 10/17/24 10:51 Room Air* 0 21 General Appearance: Alert, Oriented X3, Cooperative, No acute distress HEENT: Atraumatic, PERRLA, EOMI, Mucous membr. moist/pink Respiratory: Clear to auscultation, Normal air movement Cardiovascular: Normal S1, Normal S2, No murmurs Abdominal: Normal bowel sounds, Soft, No tenderness, No hepatospenomegaly Extremities: No clubbing, No cyanosis, No edema, Normal pulses, No tenderness/swelling Skin: No breakdown, No significant lesion Neuro: Normal gait, Normal speech, Strength at 5/5 X4 ext, Normal tone, Sensation intact Psych/Mental Status: Mental status NL, Mood NL Labs/Xrays Labs Test 10/17/24 10:02 10/17/24 09:57 Range/Units Urine Color Light-yellow Yellow Urine Clarity Turbid H Clear Urine pH 6.5 5.0-9.0 Urine Specific [place] 1.013 1.001-1.035 Urine Protein Negative Negative Urine Ketones Negative Negative Urine Blood 2+ H Negative /uL Urine Nitrite Negative Negative Urine Bilirubin Negative Negative Urine Urobilinogen Normal Negative mg/dL Urine Leukocyte Esterase 3+ Negative /uL Urine RBC 2 0 - 4 /hpf Urine Microscopic WBC 10 H 0-5 /HPF Urine Squamous Epithelial Cells Mod <5 /hpf Urine Bacteria Few H None Seen /hpf Urine Glucose Normal Normal mg/dL White Blood Count 7.4 4.4-10.8 10^3/uL Red Blood Count 4.57 4.0-5.20 10^6/uL Hemoglobin 14.2 12.2-16.2 g/dL Hematocrit 41.2 36.0-46.0 % Mean Corpuscular Volume 90.1 80.0-100.0 fL Mean Corpuscular Hemoglobin 31.1 28.0-32.0 pg Mean Corpuscular Hemoglobin Concent 34.5 32.0-36.0 g/dL Red Cell Distribution Width 13.5 11.8-14.3 % Platelet Count 218 140-450 10^3/uL Mean Platelet Volume 10.3 6.9-10.8 fL Neutrophils (%) (Auto) 66.5 37.0-80.0 % Lymphocytes (%) (Auto) 24.8 10.0-50.0 % Monocytes (%) (Auto) 6.0 0.0-12.0 % Eosinophils (%) (Auto) 1.8 0.0-7.0 % Basophils (%) (Auto) 0.9 0.0-2.0 % Neutrophils # (Auto) 4.9 1.6-8.6 10 ^3/uL Lymphocytes # (Auto) 1.8 0.4-5.4 10 ^3/uL Monocytes # (Auto) 0.4 0-1.3 10 ^3/uL Eosinophils # (Auto) 0.1 0-0.8 10 ^3/uL Basophils # (Auto) 0.1 0-0.2 10 ^3/uL Nucleated Red Blood Cells 0.1 % Sodium Level 140 136-145 mmol/L Potassium Level 3.7 3.5-5.1 mmol/L Chloride Level 109 H 98-107 mmol/L Carbon Dioxide Level 25 20-31 mmol/L Anion Gap 6 5-15 Blood Urea Nitrogen 11 9-23 mg/dL Creatinine 0.68 0.550-1.02 mg/dL Glomerular Filtration Rate Calc 105 >90 mL/min BUN/Creatinine Ratio 16.2 10.0-20.0 Serum Glucose 94 74-106 mg/dL Calcium Level 9.9 8.7-10.4 mg/dL Troponin I High Sensitivity < 3 L </=34 ng/L EXAM: XY CHEST XRAY 1 VIEW HISTORY: r/o pna COMPARISON: XY CHEST XRAY 1 VIEW on DOS: 12/31/23, XY CHEST XRAY 1 VIEW on DOS: 12/11/23, XY CHEST PORTABLE on DOS: 08/30/23 TECHNIQUE: PA upright view of the chest was performed. FINDINGS: No pneumothorax, consolidative infiltrates, or pulmonary edema. The heart is not enlarged. There is mild thoracic spondylosis and dextroscoliosis. IMPRESSION: No acute intrathoracic process. Assessment/Plan Assessment/Plan Assessment Palpitations Intractable headache with lightheadedness UTI HLD History of hypertension History of prediabetes History of thyroid nodule History cholecystectomy Plan Admit to [facility] IV antibiotics-ceftriaxone NS 1 L EKG UA Troponin negative Chest x-ray Echo ordered Last echo on 01/01/2024 EF 55% UDS UA TSH Hemoglobin A1c Lipid panel Diet Per patient she does not take any home medications DVT prophylaxis-not indicated patient ambulating PUD prophylaxis-not indicated no history of GERD or GI bleed Discussed plan of care with patient and nurse Cardiology consult Plan discussed with: Patient My Orders Orders - ALLI CHAUDHARY WELDING ESTIMATOR Procedure Category Date Status Time Chest Xray 1 View XY 10/17/24 Resulted 11:44 Ceftriaxone Ivpb PHA 10/18/24 Verified Rocephin 09:00 * Cardiology Consult CONS 10/17/24 Verified 13:21 Admit ADMIT 10/17/24 Verified 13:21 Code Status CODE 10/17/24 Verified 13:21 Vital Signs CONY 10/17/24 Verified 13:21 Spinning And Winding Supervisor CONY 10/17/24 Verified 13:21 Cardiac DIET 10/17/24 Verified Diet-2gna,Lofat,Lochol Lunch Aspirin Tablet PHA 10/18/24 Verified 10:00 Lipitor 40mg Hs PHA 10/17/24 Verified Hi-Intensity 22:00 Morphine Sulfate PHA 10/17/24 Verified Injection 13:30 Acetaminophen Tablet PHA 10/17/24 Verified (Tylenol Tablet) 13:30 Complete Blood Count LAB 10/18/24 Verified 04:00 Basic Metabolic Panel LAB 10/18/24 Verified 04:00 Magnesium LAB 10/18/24 Verified 04:00 Lipid Panel LAB 10/18/24 Verified 04:00 Echo 2d Mode Cardiac US 10/17/24 Verified DOP 13:21 Nitroglycerin PHA 10/17/24 Verified Sublingual (Ntrostat 13:30 Ondansetron Hcl PHA 10/17/24 Verified (Zofran) 13:30 Electrocardigram EKG 10/18/24 Verified 04:00 Troponin-I Hs LAB 10/17/24 Verified 13:21 Cardiac CONY 10/17/24 Verified Rehabilitation - Outpa Nitroglycerin PHA 10/17/24 Verified Sublingual (Ntrostat 13:30 Morphine Sulfate PHA 10/17/24 Verified Injection 13:30 Stat Ekg For Chest [facility] 10/17/24 Verified Pain 13:21 Notify Md Of Changes [facility] 10/17/24 Verified From Base 13:21 Boat Motor Mechanic For [facility] 10/17/24 Verified 24 Hours 13:21 Emergency Dysrhythmia [facility] 10/17/24 Verified Protocol 13:21 Rhythm Strips Once [facility] 10/17/24 Verified Every Shift 13:21 Oxygen By Nasal RT 10/17/24 Verified Cannula 13:21 Thyroid Stimulating LAB 10/17/24 Verified Hormone 13:21 Urinalysis LAB 10/17/24 Verified 13:21 Drug Screen LAB 10/17/24 Verified 13:21 Hemoglobin A1c LAB 10/17/24 Verified 13:21 Date of Service: Oct 17, 2024 Billing Provider: ALLI CHAUDHARY Common Visit Codes: [id number] INP/OBS CARE (HIGH) ALLI CHAUDHARY Oct 17, 2024 13:31
[2024-10-17] MEDS: ASPirin 81 mg TAB PO SCH (14:04)
[2024-10-17 14:19] LABS: Magnesium 1.8 mg/dL (1.6-2.6)
[2024-10-17 15:00] VITALS: BP 123/70; PULSE 52; RESP 16; TEMP 98.4; O2SAT 99
--- NOTE | 2024-10-17 15:14 | DVHINCON2 ---
KRISTY CLEARY [facility] 10/17/24 1513: Date Seen: Oct 17, 2024 Referring Physician HALEY Andres Reason for Consultation Palpitations History of Present Illness This is a 54-year-old female patient who presents to the emergency room with chief complaint of palpitations. The patient reports she has been experiencing palpitations off and on for approximately four years. The patient states that for the last two days, she has noticed her palpitations becoming more frequent and with a longer duration. Associated symptoms include shortness of breath. She decided to come to the emergency room for further evaluation. Initial twelve lead electrocardiogram reveals normal sinus rhythm with multiple PVCs. Initial troponin level was negative. Significant past medical history includes hypertension, hyperlipidemia, left lower extremity DVT, asthma, thyroid nodules, and kidney stones. The patient reports that she follows up with her note taker in the outpatient setting. Past Medical History Past medical history reviewed. No other significant than mentioned above. Past Surgical History Cholecystectomy Family History: Diabetes mellitus G8 MOTHER G8 BROTHER Hypertension G8 MOTHER Family History Family history reviewed. Social History Denies the use of tobacco, alcohol or illicit drugs. Allergies: Coded Allergies: NO KNOWN ALLERGIES (Unverified , 08/30/23) Home Meds Home medications reviewed. Current Medications Current Medications Medications (Trade) Dose Ordered Sig/Yunior Route PRN Reason Start Time Stop Time Status Last Admin Ceftriaxone Sodium 50 ml @ 100 mls/hr DAILY@09 IV 10/18/24 09:00 Aspirin 81 mg DAILY PO 10/17/24 13:59 10/17/24 14:04 Atorvastatin Calcium (Lipitor) 40 mg HS PO 10/17/24 22:00 Morphine Sulfate 2 mg Q30MP PRN IV FOR CHEST PAIN 10/17/24 13:30 Acetaminophen (Tylenol Tablet) 650 mg Q6HP PRN PO MILD PAIN (1-3 PAIN SCALE) 10/17/24 13:30 Nitroglycerin (Ntrostat Sublingual) 0.4 mg Q5MINP PRN SL FOR CHEST PAIN 10/17/24 13:30 Ondansetron HCl (Zofran) 4 mg Q4HP PRN IV NAUSEA / VOMITING 10/17/24 13:30 Nitroglycerin (Ntrostat Sublingual) 0.4 mg Q5MINP PRN SL FOR CHEST PAIN 10/17/24 13:30 10/17/24 13:58 DC Morphine Sulfate 2 mg Q30M PRN IV FOR CHEST PAIN 10/17/24 14:00 10/17/24 13:59 DC Review of Systems Constitutional: No symptom reported Ears, Nose, & Throat: No symptom reported Eyes: No symptom reported Neurological: No symptoms reported Pulmonary/Respiratory: Shortness of breath Cardiovascular: Palpitations Gastrointestinal: No symptom reported Genitourinary: No symptom reported Musculoskeletal: No symptom reported Skin: No symptom reported Psychiatric: No symptom reported Endocrine: No symptom reported Hematologic/Lymphatic: No symptom reported Vital Signs Vital Signs Date Time Temp Pulse Resp B/P (MAP) Pulse Ox O2 Delivery O2 Flow Rate FiO2 10/17/24 14:05 97.8 60 17 130/94 (106) 99 97.8 10/17/24 10:51 Room Air* 0 21 Physical Exam General Appearance: Cooperative. Well-developed. Well-nourished. No acute distress. Pulmonary/Respiratory: Clear, bilateral breaths sounds. Cardiovascular/Chest: Regular rate and rhythm. Peripheral Pulses: 2+ Radial (R). 2+ Radial (L). 2+ Pedal (R). 2+ Pedal (L) Abdominal Exam: Normal bowel sounds. Ankle Exam: Negative ankle edema Lower extremities: Negative lower extremity edema Neuro/Mental Status: A/OX4, coherent. Thoughts/Psych: Normal thought pattern. Appropriate mood and affect. Good judgment and insight. Appearance: No acute distress. Skin Exam: Normal inspection. Normal color. Warm and dry. Labs/Diagnostic Data Labs Test 10/17/24 10:02 10/17/24 09:57 Range/Units Urine Color Light-yellow Yellow Urine Clarity Turbid H Clear Urine pH 6.5 5.0-9.0 Urine Specific [place] 1.013 1.001-1.035 Urine Protein Negative Negative Urine Ketones Negative Negative Urine Blood 2+ H Negative /uL Urine Nitrite Negative Negative Urine Bilirubin Negative Negative Urine Urobilinogen Normal Negative mg/dL Urine Leukocyte Esterase 3+ Negative /uL Urine RBC 2 0 - 4 /hpf Urine Microscopic WBC 10 H 0-5 /HPF Urine Squamous Epithelial Cells Mod <5 /hpf Urine Bacteria Few H None Seen /hpf Urine Glucose Normal Normal mg/dL White Blood Count 7.4 4.4-10.8 10^3/uL Red Blood Count 4.57 4.0-5.20 10^6/uL Hemoglobin 14.2 12.2-16.2 g/dL Hematocrit 41.2 36.0-46.0 % Mean Corpuscular Volume 90.1 80.0-100.0 fL Mean Corpuscular Hemoglobin 31.1 28.0-32.0 pg Mean Corpuscular Hemoglobin Concent 34.5 32.0-36.0 g/dL Red Cell Distribution Width 13.5 11.8-14.3 % Platelet Count 218 140-450 10^3/uL Mean Platelet Volume 10.3 6.9-10.8 fL Neutrophils (%) (Auto) 66.5 37.0-80.0 % Lymphocytes (%) (Auto) 24.8 10.0-50.0 % Monocytes (%) (Auto) 6.0 0.0-12.0 % Eosinophils (%) (Auto) 1.8 0.0-7.0 % Basophils (%) (Auto) 0.9 0.0-2.0 % Neutrophils # (Auto) 4.9 1.6-8.6 10 ^3/uL Lymphocytes # (Auto) 1.8 0.4-5.4 10 ^3/uL Monocytes # (Auto) 0.4 0-1.3 10 ^3/uL Eosinophils # (Auto) 0.1 0-0.8 10 ^3/uL Basophils # (Auto) 0.1 0-0.2 10 ^3/uL Nucleated Red Blood Cells 0.1 % Sodium Level 140 136-145 mmol/L Potassium Level 3.7 3.5-5.1 mmol/L Chloride Level 109 H 98-107 mmol/L Carbon Dioxide Level 25 20-31 mmol/L Anion Gap 6 5-15 Blood Urea Nitrogen 11 9-23 mg/dL Creatinine 0.68 0.550-1.02 mg/dL Glomerular Filtration Rate Calc 105 >90 mL/min BUN/Creatinine Ratio 16.2 10.0-20.0 Serum Glucose 94 74-106 mg/dL Hemoglobin A1c 5.4 <5.7 % A1C Calcium Level 9.9 8.7-10.4 mg/dL Troponin I High Sensitivity < 3 L </=34 ng/L Thyroid Stimulating Hormone (TSH) 3.14 0.55-4.78 uIU/mL Assessment Palpitations, rule out cardiac arrhythmia Rule out structural heart disease Hypertension Hyperlipidemia Urinary tract infection History of left lower extremity DVT History of thyroid nodules Asthma Plan/Recommendation We will continue with the following plan/recommendations (Dr. Guevara): Patient seen and examined at bedside with . We will proceed with obtaining a transthoracic echocardiogram to evaluate cardiac function. Patient noted to have frequent PVCs on twelve lead electrocardiogram as well as on continuous night monitor. Monitor and replete electrolytes as needed. TSH within normal limits. Initiate beta-ally. Continue with close cardiac surveillance. Thank you for allowing us to care for this patient. Please call with any questions or concerns. Critical care time spent: 42 minutes This medical document was created using an electronic medical record system with voice recognition software and computerized dictation system. Although this document has been carefully reviewed, there might still be some phonetic and typographical errors. Occasional wrong-word or ``sound-alike substitutions may have occurred due to the inherent limitations of voice recognition software. These areas are purely typographical due to imperfections of the software programs and do not reflect any compromise in the patient's medical care. Please read the chart carefully and recognize, using context, where these substitutions have occurred. Plan discussed with: Patient NYHA Physical activity limitations: NA Date of Service: Oct 17, 2024 Billing Provider: KRISTY CLEARY Cardiology Common Codes: [id number] INP/OBS CARE (High) Cardiology Consultation Codes: [id number] CONSULT <45MIN MARLEEN GUEVARA MD 10/17/24 1736: Family History: Diabetes mellitus G8 MOTHER G8 BROTHER Hypertension G8 MOTHER Allergies: Coded Allergies: NO KNOWN ALLERGIES (Unverified , 08/30/23) Plan/Recommendation frequent PVCs check echo /ro chf start toprol XL outpt fu Plan discussed with: Patient KRISTY CLEARY Oct 17, 2024 15:13 MARLEEN GUEVARA MD Oct 17, 2024 17:36
[2024-10-17 16:10] LABS: Urine Bacteria FEW /hpf (None Seen); Urine Blood 2+ /uL (Negative); Urine Clarity Turbid (Clear); Urine Color Light-Yellow (Yellow); Urine Mucus FEW (None Seen); Urine Protein, UAD Negative (Negative); Urine Specific Gravity 1.016 (1.001-1.035); Urine Squamous Epithelial Cell FEW /hpf (<5); Urine Urobilinogen Normal (Negative); Urine WBC 5 /HPF (0-5)
[2024-10-17 16:13] LABS: Amphetamine Screen, Urine Neg (NEGATIVE); Barbiturate Scree,Urine Neg (NEGATIVE); Benzodiazephine Screen, Urine Neg (NEGATIVE); Cannabinoid Screen, Urine Neg (NEGATIVE); Cocaine Screen, Urine Neg (NEGATIVE); Opiate Scree,Urine Neg (NEGATIVE); Phencyclidine Screen, Urine Neg (NEGATIVE)
[2024-10-17 17:17] VITALS: BP 144/67; PULSE 60; RESP 14; TEMP 98.6; O2SAT 97
[2024-10-17] MEDS: METOPROLOL SUCCINATE XL 50 MG TAB PO ONE (18:06)
[2024-10-17] MEDS: MAGNESIUM SULFATE 1GM/100ML 100 ML IV ONE (18:06)
[2024-10-17 20:30] VITALS: BP 131/72; PULSE 57; PULSE 86; RESP 18; TEMP 97.9; O2SAT 98
[2024-10-17] MEDS: ATORVASTATIN 20 MG TAB PO SCH (21:32)
[2024-10-18] VITALS (8 sets, daily range): BP systolic 103–139; BP diastolic 66–76; PULSE 58–71; RESP 16–18; TEMP 97.8–98.2; O2SAT 95–99
[2024-10-18 05:56] LABS: Basophils # (auto) 0 10 ^3/uL (0-0.2); Basophils % (auto) 0.6 % (0.0-2.0); Eosinophils # (auto) 0.2 10 ^3/uL (0-0.8); Eosinophils % (auto) 2.9 % (0.0-7.0); Hematocrit 38.2 % (36.0-46.0); Hemoglobin 13.3 g/dL (12.2-16.2); Lymphocytes # (auto) 1.7 10 ^3/uL (0.4-5.4); Lymphocytes % (auto) 27.3 % (10.0-50.0); Mean Corpuscular Hemoglobin 31.5 pg (28.0-32.0); Mean Corpuscular Hgb Conc. 34.9 g/dL (32.0-36.0); Mean Corpuscular Volume 90.3 fL (80.0-100.0); Monocytes # (auto) 0.5 10 ^3/uL (0-1.3); Monocytes % (auto) 8.1 % (0.0-12.0); Neutrophils # (auto) 3.8 10 ^3/uL (1.6-8.6); Neutrophils % (auto) 61.1 % (37.0-80.0); Nucleated Red Blood Cells % 0.1 %; Platelet Count (auto) 182 10^3/uL (140-450); Red Blood Cells 4.24 10^6/uL (4.0-5.20); Red Cell Distribution Width 13.2 % (11.8-14.3); White Blood Cell 6.2 10^3/uL (4.4-10.8)
[2024-10-18 06:11] LABS: Anion Gap 7 (5-15); Calcium 9.1 mg/dL (8.7-10.4); Carbon Dioxide 24 mmol/L (20-31); Potassium 4.2 mmol/L (3.5-5.1); Sodium 141 mmol/L (136-145)
[2024-10-18 06:15] LABS: Chloride 110 mmol/L (98-107)
[2024-10-18 06:17] LABS: BUN/Creatinine Ratio 14.1 (10.0-20.0); Blood Urea Nitrogen 11 mg/dL (9-23); Glucose 105 mg/dL (74-106); Triglycerides 120 mg/dL (< 150)
[2024-10-18 06:18] LABS: Magnesium 1.9 mg/dL (1.6-2.6)
[2024-10-18 06:19] LABS: Cholesterol 160 mg/dL (< 200)
[2024-10-18 06:20] LABS: HDL Cholesterol 38 mg/dL (40-59); LDL Cholesterol 104 mg/dL (< 100)
[2024-10-18] MEDS: cefTRIAXone 1GM/50ML D5W 50 ML IV SCH (09:33)
[2024-10-18] MEDS: METOPROLOL SUCCINATE XL 50 MG TAB PO SCH (09:34)
--- NOTE | 2024-10-18 10:26 | DVHPN2 ---
Consult Progress Note Subjective Other Systems: Patient in normal sinus rhythm on monitoring analyst at time of assessment No cardiac events noted overnight Objective vital signs Vital Sign Date Time Temp Pulse Resp B/P (MAP) Pulse Ox O2 Delivery O2 Flow Rate FiO2 10/18/24 09:00 98.2 58 16 117/70 (86) 99 98.2 10/17/24 20:30 Room Air* 0 21 Total Intake and Output 10/17/24 10/17/24 10/18/24 15:00 23:00 07:00 Intake Total 1050 ml 100 ml 0 ml Output Total 0 ml Balance 1050 ml 100 ml 0 ml medications Current Medications Medications Dose Ordered Sig/Yunior Route Start Time Stop Time Status Last Admin Dose Admin Ceftriaxone Sodium 50 ml @ 100 mls/hr DAILY@09 IV 10/18/24 09:00 10/18/24 09:33 100 MLS/HR Aspirin 81 mg DAILY PO 10/17/24 13:59 10/18/24 09:34 81 MG Atorvastatin Calcium 40 mg HS PO 10/17/24 22:00 Morphine Sulfate 2 mg Q30MP PRN IV 10/17/24 13:30 Acetaminophen 650 mg Q6HP PRN PO 10/17/24 13:30 Nitroglycerin 0.4 mg Q5MINP PRN SL 10/17/24 13:30 Ondansetron HCl 4 mg Q4HP PRN IV 10/17/24 13:30 Metoprolol Succinate 25 mg DAILY PO 10/18/24 10:00 Examination: GENERAL:Normal, LUNGS:Normal, CVS:Normal, NEURO:Normal laboratory and microbiology Laboratory Tests 10/18/24 05:14 Test 10/18/24 05:14 Range/Units Serum Glucose 105 74-106 mg/dL Problem List/Assessment/Plan Problem List/Assessment/Plan Palpitations with frequent PVC's, rule out cardiac arrhythmia Rule out structural heart disease Hypertension Hyperlipidemia Urinary tract infection History of left lower extremity DVT History of thyroid nodules Asthma Plan/Recommendation We will continue with the following plan/recommendations (Dr. Dunlap): Case discussed with . We will proceed with obtaining a transthoracic echocardiogram to evaluate cardiac function. The patient was started on beta- ally. We will recommend for the patient to continue on beta-ally therapy. In the setting of an unremarkable transthoracic echocardiogram, there is no further inpatient cardiac workup indicated at this time. The patient will follow up with in his clinic as outpatient. Thank you for allowing us to care for this patient. Please call with any questions or concerns. This medical document was created using an electronic medical record system with voice recognition software and computerized dictation system. Although this document has been carefully reviewed, there might still be some phonetic and typographical errors. Occasional wrong-word or ``sound-alike substitutions may have occurred due to the inherent limitations of voice recognition software. These areas are purely typographical due to imperfections of the software programs and do not reflect any compromise in the patient's medical care. Please read the chart carefully and recognize, using context, where these substitutions have occurred. Plan discussed with: Patient Date of Service: Oct 18, 2024 Billing Provider: KRISTY CLEARY Common Visit Codes: [id number] INP/OBS CARE(HIGH) KRISTY CLEARY Oct 18, 2024 10:26
[2024-10-18] MEDS ORDERED: ATOR20TA50 PO (17:02)
[2024-10-18] MEDS ORDERED: ASPI-325 PO (17:02)
[2024-10-18] MEDS ORDERED: METO25TA93 PO (17:02)
[2024-10-18] MEDS ORDERED: CEPH500C PO (17:03)
--- NOTE | 2024-10-18 17:05 | DVHDS2 ---
Discharge Summary Date of Admission Oct 17, 2024 at 13:21 Date of Discharge: Oct 18, 2024 Labs/Diagnostic Data: Laboratory Results Test 10/18/24 05:14 10/17/24 15:36 10/17/24 09:57 White Blood Count 6.2 10^3/uL (4.4-10.8) Red Blood Count 4.24 10^6/uL (4.0-5.20) Hemoglobin 13.3 g/dL (12.2-16.2) Hematocrit 38.2 % (36.0-46.0) Mean Corpuscular Volume 90.3 fL (80.0-100.0) Mean Corpuscular Hemoglobin 31.5 pg (28.0-32.0) Mean Corpuscular Hemoglobin Concent 34.9 g/dL (32.0-36.0) Red Cell Distribution Width 13.2 % (11.8-14.3) Platelet Count 182 10^3/uL (140-450) Mean Platelet Volume 9.9 fL (6.9-10.8) Neutrophils (%) (Auto) 61.1 % (37.0-80.0) Lymphocytes (%) (Auto) 27.3 % (10.0-50.0) Monocytes (%) (Auto) 8.1 % (0.0-12.0) Eosinophils (%) (Auto) 2.9 % (0.0-7.0) Basophils (%) (Auto) 0.6 % (0.0-2.0) Neutrophils # (Auto) 3.8 10 ^3/uL (1.6-8.6) Lymphocytes # (Auto) 1.7 10 ^3/uL (0.4-5.4) Monocytes # (Auto) 0.5 10 ^3/uL (0-1.3) Eosinophils # (Auto) 0.2 10 ^3/uL (0-0.8) Basophils # (Auto) 0 10 ^3/uL (0-0.2) Nucleated Red Blood Cells 0.1 % Sodium Level 141 mmol/L (136-145) Potassium Level 4.2 mmol/L (3.5-5.1) Chloride Level 110 mmol/L (98-107) Carbon Dioxide Level 24 mmol/L (20-31) Anion Gap 7 (5-15) Blood Urea Nitrogen 11 mg/dL (9-23) Creatinine 0.78 mg/dL (0.550-1.02) Glomerular Filtration Rate Calc 91 mL/min (>90) BUN/Creatinine Ratio 14.1 (10.0-20.0) Serum Glucose 105 mg/dL (74-106) Calcium Level 9.1 mg/dL (8.7-10.4) Magnesium Level 1.9 mg/dL (1.6-2.6) Triglycerides Level 120 mg/dL (< 150) Cholesterol Level 160 mg/dL (< 200) LDL Cholesterol 104 mg/dL (< 100) HDL Cholesterol 38 mg/dL (40-59) Urine Color Light-yellow (Yellow) Urine Clarity Turbid (Clear) Urine pH 5.0 (5.0-9.0) Urine Specific [place] 1.016 (1.001-1.035) Urine Protein Negative (Negative) Urine Ketones 1+ (Negative) Urine Blood 2+ /uL (Negative) Urine Nitrite Negative (Negative) Urine Bilirubin Negative (Negative) Urine Urobilinogen Normal mg/dL (Negative) Urine Leukocyte Esterase 2+ /uL (Negative) Urine RBC 1 /hpf (0 - 4) Urine Microscopic WBC 5 /HPF (0-5) Urine Squamous Epithelial Cells Few /hpf (<5) Urine Bacteria Few /hpf (None Seen) Urine Mucus Few (None Seen) Urine Glucose Normal mg/dL (Normal) Urine Opiates Screen Neg (NEGATIVE) Urine Fentanyl Screen Neg (NEGATIVE) Urine Barbiturates Screen Neg (NEGATIVE) Urine Phencyclidine Screen Neg (NEGATIVE) Urine Amphetamines Screen Neg (NEGATIVE) Urine Benzodiazepines Screen Neg (NEGATIVE) Urine Cocaine Screen Neg (NEGATIVE) Urine Cannabinoids Screen Neg (NEGATIVE) Hemoglobin A1c 5.4 % A1C (<5.7) Troponin I High Sensitivity < 3 ng/L (</=34) Thyroid Stimulating Hormone (TSH) 3.14 uIU/mL (0.55-4.78) Other Laboratory Tests 10/18/24 05:14 Brief Hx & Hospital Course: 64-year-old female with a known history of prediabetes, hypertension initially presented to the hospital with a heart palpitations as well as dizziness patient was eventually admitted patient was found to have PVCs. Patient was seen by Cardiology 2D echo was done. Patient's troponins are normal. Patient's has a UTI which was treated with the IV antibiotics. Cardiology recommended aspirin statin and beta ally which will be prescribed along with the p.o. antibiotics. Patient is currently asymptomatic denies any chest pain palpitation and stable to be discharged with a close follow up as an outpatient with the PCP and Cardiology. Condition at Discharge: Stable Final Diagnosis/Problems List 1. Palpitations with frequent PVCs, rule out cardiac arrhythmia, recommended to be on aspirin statin and beta ally per Cardiology. 2. UTI 3. Morbid obesity class I Discharge Disposition: Home SNF Discharge Will this Physician continue t: No Discharge Instruct/Medications Diet: Cardiac 2g Na,low cholest Activity: No Restrictions, As Tolerated Follow Up/Referral: Please follow up with the PCP in 1-2 weeks Follow up with the Cardiology Dr Dunlap in one week Medications: Aspirin, statin, beta ally, Keflex as prescribed. Discharge Statement: "Patient was advised to return to the ER or call 911 if any headaches, dizziness, shortness of breath, chest pain, abdominal pain, bleeding, fevers, or worsening of medical condition. Patient was counseled about treatment plan, medications, possible side effects, patientverbalized understanding. All questions were answered to the best of my ability. This discharge took greater then 30 minutes in planning, reviewing documentation, counseling the patient, and discussing with other team members." ASSESSMENT ASSESSMENT Assessment 1. Palpitations with frequent PVCs, rule out cardiac arrhythmia, recommended to be on aspirin statin and beta ally per Cardiology. 2. UTI 3. Morbid obesity class I Date of Service: Oct 18, 2024 Billing Provider: GUNNAR GALDAMEZ MD Common Visit Codes: [id number] DISCH DAY >30min GUNNAR GALDAMEZ MD Oct 18, 2024 17:05
--- NOTE | 2024-10-18 20:30 | DVHSR ---
APPROVED REPORT EXAM: Two-dimensional and M-mode echocardiogram with Doppler and color Doppler. Blood Pressure: 103/67 mmHg INDICATION Chest Pain RISK FACTORS Height: 5'1, Weight: 165 DIMENSIONS LVDd4.5 (3.8-5.7cm)LA (2D)3.5 (1.9-4.0cm)Aortic Root2.8 (2.0-3.7cm) LVDs2.7 (2.5-4.0cm)LA (MM) (1.9-4.0cm)Aortic Cusp Exc1.5 (1.5-2.0cm) EF (%) 70.2 (55-70%)Rt. Atrium2.6 (1.9-4.0cm)Asc. Aorta cm IVSd0.8 (0.7-1.1cm)RV (D)3.7 (1.8-2.4cm) PWd0.6 (0.7-1.1cm) Mitral Valve MitralMitral Stenosis E wave1.18m/sMV Mean GR.mmHg A wave0.72m/sMV Peak GR.80mmHg E/A ratio1.62D MVAcm2 DECEL [id number] 1/2 Timems Aortic Valve Aortic ValveAortic Stenosis V11.44m/Agus Mean GR.6mmHg V21.67m/Agus Peak GR.11mmHg LVOT Diameter1.8 (1.8-2.4cm)Doppler AVA2.19cm2 Tricuspid Valve TR Velocity2.43m/s [id number] Conclusion NORMAL LV EJECTION FRACTION IS 65% NORMAL VALVES NO EFFUSION NORMAL RV FUNCTION AND SIZE
--- NOTE | 2024-10-18 23:30 | DVHPN2 ---
Consult Progress Note Subjective Other Systems: Patient was seen and evaluated in follow up. Patient denies any complaints. Patient is in normal sinus rhythm on quality assurance monitor. No cardiac events noted overnight. Telemetry reviewed. Objective vital signs Vital Sign Date Time Temp Pulse Resp B/P (MAP) Pulse Ox O2 Delivery O2 Flow Rate FiO2 10/18/24 19:10 97.8 70 18 95 10/18/24 17:00 120/75 (90) 10/18/24 08:15 Room Air* 0 21 Total Intake and Output 10/17/24 10/17/24 10/18/24 15:00 23:00 07:00 Intake Total 1050 ml 100 ml 0 ml Output Total 0 ml Balance 1050 ml 100 ml 0 ml medications Current Medications Medications Dose Ordered Sig/Yunior Route Start Time Stop Time Status Last Admin Dose Admin Ceftriaxone Sodium 50 ml @ 100 mls/hr DAILY@09 IV 10/18/24 09:00 10/18/24 09:33 100 MLS/HR Aspirin 81 mg DAILY PO 10/17/24 13:59 10/18/24 09:34 81 MG Atorvastatin Calcium 40 mg HS PO 10/17/24 22:00 Morphine Sulfate 2 mg Q30MP PRN IV 10/17/24 13:30 Acetaminophen 650 mg Q6HP PRN PO 10/17/24 13:30 Nitroglycerin 0.4 mg Q5MINP PRN SL 10/17/24 13:30 Ondansetron HCl 4 mg Q4HP PRN IV 10/17/24 13:30 Metoprolol Succinate 25 mg DAILY PO 10/18/24 10:00 Examination: GENERAL:Normal, HEENT:Normal, NECK:Normal, LUNGS:Normal, CVS:Normal, ABDOMEN:Normal, NEURO:Normal laboratory and microbiology Laboratory Tests 10/18/24 05:14 Test 10/18/24 05:14 Range/Units Serum Glucose 105 74-106 mg/dL Problem List/Assessment/Plan Problem List/Assessment/Plan Problem List/Assessment/Plan Palpitations with frequent PVC's, rule out cardiac arrhythmia. Rule out structural heart disease. Hypertension. Hyperlipidemia. Urinary tract infection. History of left lower extremity DVT. History of thyroid nodules. Asthma. Plan/Recommendation Continued all current supportive medical care. Patient has been seen by Rin Monsivais NP on my behalf, her and I discussed the plan with the patient. We will proceed with obtaining a transthoracic echocardiogram to evaluate cardiac function. The patient was started on beta-ally. We will recommend for the patient to continue on beta-ally therapy. In the setting of an unremarkable transthoracic echocardiogram, there is no further inpatient cardiac workup indicated at this time. The patient will follow up with in his clinic as outpatient. Additional plan as per the hospital course. Plan discussed with: Patient Date of Service: Oct 18, 2024 Billing Provider: ROLY SPEAR MD Cardiology Common Codes: 86333-PCVWSOE INP/OBS CARE (High) ORLY SPEAR MD Oct 18, 2024 19:43
== END 2024-10-18 19:49 | disposition home or self-care (01) | DRG 309 ==
LOC: ER 09:45 → OVERFLOW 13:21 → TELE-EAST 20:30
PROVIDERS: ADMIT Internal Medicine; ATTEND Internal Medicine
DX: I49.9 Cardiac arrhythmia, unspecified (principal); N39.0 Urinary tract infection, site not specified; I49.3 Ventricular premature depolarization; R73.9 Hyperglycemia, unspecified; I10 Essential (primary) hypertension; E78.5 Hyperlipidemia, unspecified; J45.909 Unspecified asthma, uncomplicated; R73.03 Prediabetes; E04.2 Nontoxic multinodular goiter; E66.01 Morbid (severe) obesity due to excess calories; Z79.899 Other long term (current) drug therapy; Z90.49 Acquired absence of other specified parts of digestive tract; Z82.49 Family history of ischemic heart disease and other diseases of the circulatory system; Z83.3 Family history of diabetes mellitus; Z87.442 Personal history of urinary calculi; Z86.718 Personal history of other venous thrombosis and embolism; Z68.31 Body mass index [BMI] 31.0-31.9, adult
CPT/HCPCS: 36415; 71045; 80048; 80061; 80307; 81001; 83036; 83735; 84443; 84484; 85025; 93005; 93306; 96365; G0378

== ENCOUNTER 2025-01-07 04:36 | Emergency (ER) | payer BC ==
[~2025-01-07] VITALS: Ht 154.9 cm; Wt 79.9 kg
[~2025-01-07 04:36] MED LIST changes: +ASPI-325 PO; +ATOR20TA50 PO; +CEPH500C PO; -LISI10TA34 PO; +METO25TA93 PO; -SERT25TA84 PO; -TRAM50TA2 PO
[2025-01-07 04:38] VITALS: BP 140/62; PULSE 70; RESP 12; TEMP 98.2; O2SAT 97
== END 2025-01-07 12:50 | disposition left against medical advice (07) ==
LOC: ER 04:36
DX: M79.605 Pain in left leg (principal); Z53.21 Procedure and treatment not carried out due to patient leaving prior to being seen by health care provider

== ENCOUNTER 2025-03-24 12:40 | Emergency (ER) | payer BC ==
[~2025-03-24] VITALS: Ht 154.9 cm; Wt 76.0 kg
--- NOTE | 2025-03-24 12:53 | ECG ---
[facility] Test Date: 2025-03-24 Test Time: 12:45:17 Pat Name: RA DINERO Department: Room: Gender: F Borderer: : 1970 Requested By: VENU CATES Order Number: [id number] Reading MD: Thee Muñoz Measurements Intervals [place] Rate: 72 P: 55 ND: 138 QRS: 34 QRSD: 102 T: 14 QT: 385 QTc: 422 Interpretive Statements Sinus rhythm Low voltage, precordial leads RSR' in V1 or V2, right VCD or RVH Electronically Signed On 03-28-2025 15:39:37 PST by Thee Muñoz Please click the below link to view image of tracing.
--- NOTE | 2025-03-24 12:55 | ED.PDOC ---
HPI Comments 54 year old female presents to the ED with a chief complaint of chest pain onset 2 days. Patient states she has been experiencing intermittent LT sided chest pain, pain became constant since last night and also began experiencing blurred vision. Patient had surgery on 03/21/25 due to injury on LT thumb, went under general anesthesia. Denies fever, chills, headache, shortness of breath, numbness/tingling, dizziness, nausea, vomiting, diarrhea. No other symptoms or modifying fas present at this time. Chief Complaint: Chest Pain Time Seen by MD: 12:50 Primary Care Provider: Anaya Salomon Notes: Medications, Allergies Allergies: Coded Allergies: NO KNOWN ALLERGIES (Unverified , 08/30/23) Home Meds Active Scripts Cephalexin Monohydrate (Cephalexin) 500 Mg Cap, 1 CAP PO TID for 4 Days, #12 CAP Prov:GUNNAR GALDAMEZ MD 10/18/24 Metoprolol Succinate (Metoprolol Succinate Er) 25 Mg Tab, 1 TAB PO DAILY, #30 TAB 5 Refills Prov:GUNNAR GALDAMEZ MD 10/18/24 Atorvastatin Calcium (ATORVASTATIN CALCIUM) 20 Mg Tab, 40 MG PO HS, #30 TAB Prov:GUNNAR GALDAMEZ MD 10/18/24 Aspirin (Aspirin Low Dose) 81 Mg Tab, 81 MG PO DAILY, #30 TAB Prov:GUNNAR GALDAMEZ MD 10/18/24 Information Source: Patient Mode of Arrival: Ambulatory Severity: Moderate Timing: Days Duration: Since onset Prehospital treatment: None Location: Chest (L) Radiation: No Radiation Quality: Pressure Onset: At Rest Cardiac Risk Factors: None PE Risk Factors: None History of: None Modifying Factors: Nothing Past Medical History PAST MEDICAL HISTORY: Thyroid Surgical History: 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: Denies all [employer]ER Hx Family History Family History: Reviewed,noncontributory to illness, No family hx of Cancer, No family hx of Heart tashi, No family hx ofKidney tashi, No family hx of Liver tashi, No family hx of Lung tashi, No family hx of Stroke, Family hx of DM, Family hx of HTN Social History Smoker: Non-Smoker Alcohol: Denies ETOH Use Drugs: Denies Drug Use Lives In: Home Constitutional: reports: others (tired); denies: chills, diaphoresis, fatigue, fever, malaise, sweats, weakness EENTM: reports: blurred vision; denies: double vision, ear bleeding, ear discharge, ear drainage, ear pain, ear ringing, eye pain, eye redness, hearing loss, mouth pain, mouth swelling, nasal discharge, nose bleeding, nose congestion, nose pain, photophobia, tearing, throat pain, throat swelling, voice changes, others Respiratory: denies: cough, hemoptysis, orthopnea, SOB at rest, shortness of breath, SOB with excertion, stridor, wheezing, others Cardiovascular: reports: chest pain; denies: dizzy spells, diaphoresis, Dyspnea on exertion, edema, irregular heart beat, left arm pain, lightheadedness, palpitations, PND, syncope, others Gastrointestinal: denies: abdomen distended, abdominal pain, blood streaked bowels, constipated, diarrhea, dysphagia, difficulty swallowing, hematemesis, melena, nausea, poor appetite, poor fluid intake, rectal bleeding, rectal pain, vomiting, others Genitourinary: denies: abnormal vagina bleeding, burning, dyspareunia, dysuria, flank pain, frequency, hematuria, incontinence, pain, , vagina discharge, urgency, others Neurological: denies: dizziness, fainting, headache, left sided numbness, left sided weakness, numbness, paresthesia, pre-existing deficit, right sided numbness, right sided weakness, seizure, speech problems, tingling, tremors, weakness, others Musculoskeletal: denies: back pain, gout, joint pain, joint swelling, muscle pain, muscle stiffness, neck pain, others Integumetry: denies: bruises, change in color, change in hair/nails, dryness, laceration, lesions, lumps, rash, wounds, others Allergic/Immunocompromised: denies: Difficulty Healing, Frequent Infections, Hi ves, Itching, others Hematologic/Lymphatic: denies: anemia, blood clots, easy bleeding, easy bruising, swollen glands, others Endocrine: denies: excessive hunger, excessive sweating, excessive thirst, excessive urination, flushing, intolerance to cold, intolerance to heat, unexplained weight gain, unexplained weight loss, others Psychiatric: denies: anxiety, bipolar disorder, depression, hopeless, panic disorder, schizophrenia, sleepless, suicidal, others All Other Systems: Reviewed and Negative Physical Exam General Appearance: Normal HEENT: Normal ENT Inspection, Pharynx Normal, TMs Normal Neck: Full Range of Motion, Non-Tender, Normal, Normal Inspection Respiratory: Chest Non-Tender, Lungs Clear, No Accessory Muscle Use, No Respiratory Distress, Normal Breath Sounds Cardiovascular: No Edema, No JVD, No Murmur, No Gallop, Normal Peripheral Pulses, Regular Rate/Rhythm Breast Exam: Deferred Gastrointestinal: No Organomegaly, Non Tender, No Pulsatile Mass, Normal Bowel Sounds, Soft Genitalia: Deferred Pelvic: Deferred Rectal: Deferred Extremities: No calf tenderness, Normal capillary refill, Normal inspection, Normal range of motion, Non-tender, No pedal edema Musculoskeletal : Apperance: Normal Neurologic: Alert, commercial reporter 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 Was a procedure done?: No CP Differential Dx Differential Diagnosis: MAT, AR, PAC's Differential Diagnosis: HTN Essential, HTN Accelerated Differential Diagnosis: Gastritis, Myocardial Infarction, Pericarditis X-Ray, Labs, Meds, VS Vital Signs Date Time Temp Pulse Resp B/P (MAP) Pulse Ox O2 Delivery O2 Flow Rate FiO2 03/24/25 16:36 98.3 68 15 158/80 (106) 97 98.3 03/24/25 15:50 64 03/24/25 13:46 69 03/24/25 12:49 98.1 82 15 152/101 97 98.1 03/24/25 12:45 72 Lab Test 03/24/25 14:12 03/24/25 12:51 Range/Units Troponin I High Sensitivity < 3 L < 3 L </=34 ng/L White Blood Count 8.6 4.4-10.8 10^3/uL Red Blood Count 4.55 4.0-5.20 10^6/uL Hemoglobin 14.5 12.2-16.2 g/dL Hematocrit 41.3 36.0-46.0 % Mean Corpuscular Volume 90.7 80.0-100.0 fL Mean Corpuscular Hemoglobin 31.8 28.0-32.0 pg Mean Corpuscular Hemoglobin Concent 35.1 32.0-36.0 g/dL Red Cell Distribution Width 12.9 11.8-14.3 % Platelet Count 242 140-450 10^3/uL Mean Platelet Volume 9.8 6.9-10.8 fL Neutrophils (%) (Auto) 69.0 37.0-80.0 % Lymphocytes (%) (Auto) 20.9 10.0-50.0 % Monocytes (%) (Auto) 7.6 0.0-12.0 % Eosinophils (%) (Auto) 1.5 0.0-7.0 % Basophils (%) (Auto) 1.0 0.0-2.0 % Neutrophils # (Auto) 5.9 1.6-8.6 10 ^3/uL Lymphocytes # (Auto) 1.8 0.4-5.4 10 ^3/uL Monocytes # (Auto) 0.7 0-1.3 10 ^3/uL Eosinophils # (Auto) 0.1 0-0.8 10 ^3/uL Basophils # (Auto) 0.1 0-0.2 10 ^3/uL Nucleated Red Blood Cells 0.1 % Sodium Level 140 136-145 mmol/L Potassium Level 4.1 3.5-5.1 mmol/L Chloride Level 103 98-107 mmol/L Carbon Dioxide Level 27 20-31 mmol/L Anion Gap 10 5-15 Blood Urea Nitrogen 16 9-23 mg/dL Creatinine 0.80 0.550-1.02 mg/dL Glomerular Filtration Rate Calc 89 >90 mL/min BUN/Creatinine Ratio 20.0 10.0-20.0 Serum Glucose 89 74-106 mg/dL Calcium Level 9.2 8.7-10.4 mg/dL Time of 1ST Reevaluation: 13:20 Reevaluation 1ST: Unchanged Patient Education/Counseling: Diagnosis, Treatment, Prognosis Family Education/Counseling: No Family Present SEPSIS Sepsis Screen Physician Orders Urinalysis (03/24/25 12:51) Chest Portable (03/24/25 12:51) Electrocardigram (03/24/25 15:51) Vital Signs Date Time Temp Pulse Resp B/P (MAP) Pulse Ox O2 Delivery O2 Flow Rate FiO2 03/24/25 16:36 98.3 68 15 158/80 (106) 97 98.3 03/24/25 15:50 64 03/24/25 13:46 69 03/24/25 12:49 98.1 82 15 152/101 97 98.1 03/24/25 12:45 72 Laboratory Tests Test 03/24/25 12:51 White Blood Count 8.6 10^3/uL (4.4-10.8) Departure 1 Departure Time of Disposition: 16:47 (Patient presented with chest pain that was co ncerning for possible STEMI, ACS, PE, Pneumonia, Muscle Strain, COPD, Dissection. Data: 1. I ordered and reviewed the result of at least 3 labs including a CBC, BMP, and Troponin. 2. I independently interpreted the following tests: EKG which shows sinus arrhythmia and Chest X-ray which shows benign chest.Risk:This patient has a high risk of morbidity due to further diagnostic testing or treatment and may suffer from an acute cardiac or respiratory disorder. Workup reveals concern for ACS and patient should be admitted for further workup and possible expert consultation. ) Impression: Primary Impression: Acute chest pain Additional Impression: Shortness of breath Disposition: ADMITTED INPATIENT Admit to: Tele Condition: Guarded Critical Care Note Critical Care Time?: Yes Critical care comment: Acute chest pain Authorized and Performed by: Venu Raymundo MD Total critical care time: Approximately 38 minutes Due to a high probability of clinically significant, life threatening deterioration, the patient required my highest level of preparedness to intervene emergently and I personally spent this critical care time directly and personally managing the patient. This critical care time included obtaining a history; examining the patient; pulse oximetry; ordering and review of studies; arranging urgent treatment with development of a management plan; evaluation of patient's response to treatment; frequent reassessment; and, discussions with other providers. This critical care time was performed to assess and manage the high probability of imminent, life-threatening deterioration that could result in multi-organ failure. It was exclusive of separately billable procedures and treating other patients and teaching time. Please see my other sections and the rest of the note for further information on patient assessment and treatment. Stability Stability form required: No Heart Score Heart Score: Heart Score Response (Comments) Value History N/A 0 EKG N/A 0 Age N/A 0 Risk Factors N/A 0 Troponin N/A 0 Total 0 I personally scribed for VENU RAYMUNDO MD ([email or web address]) on 03/24/25 at 12:55. Electronically submitted by Juanis Jean ([email or web address]). VENU RAYMUNDO MD Mar 24, 2025 12:55
[2025-03-24 13:19] LABS: Hematocrit 41.3 % (36.0-46.0); Hemoglobin 14.5 g/dL (12.2-16.2); Mean Corpuscular Hemoglobin 31.8 pg (28.0-32.0); Mean Corpuscular Volume 90.7 fL (80.0-100.0); Nucleated Red Blood Cells % 0.1 %
[2025-03-24 13:28] LABS: Chloride 103 mmol/L (98-107); Potassium 4.1 mmol/L (3.5-5.1); Sodium 140 mmol/L (136-145)
[2025-03-24 13:29] LABS: Anion Gap 10 (5-15); Calcium 9.2 mg/dL (8.7-10.4); Carbon Dioxide 27 mmol/L (20-31)
[2025-03-24 13:34] LABS: BUN/Creatinine Ratio 20.0 (10.0-20.0); Blood Urea Nitrogen 16 mg/dL (9-23); Glucose 89 mg/dL (74-106)
--- NOTE | 2025-03-24 13:36 | DVH ---
CHEST RADIOGRAPH Indication: sob Technique: Single frontal view of the chest was obtained COMPARISON: XY CHEST XRAY 1 VIEW on DOS: 10/17/24, XY CHEST XRAY 1 VIEW on DOS: 12/31/23, XY CHEST XRAY 1 VIEW on DOS: 12/11/23, XY CHEST PORTABLE on DOS: 08/30/23 FINDINGS: Lines and Tubes: None Lungs: Clear Pleura: No effusion. No pneumothorax. Cardiomediastinal contours: Unremarkable Bones: Unremarkable IMPRESSION: No acute disease.
--- NOTE | 2025-03-24 16:33 | ECG ---
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
[2025-03-24 16:36] VITALS: BP 158/80; PULSE 68; RESP 15; TEMP 98.3; O2SAT 97
--- NOTE | 2025-03-26 10:01 | ECG ---
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
== END 2025-03-24 23:41 | disposition left against medical advice (07) ==
LOC: ER 12:40
DX: R07.89 Other chest pain (principal); R06.02 Shortness of breath; Z90.49 Acquired absence of other specified parts of digestive tract; Z79.899 Other long term (current) drug therapy
CPT/HCPCS: 36415; 71045; 80048; 84484; 85025; 93005

== ENCOUNTER 2025-04-23 11:17 | Inpatient (IN) | payer BC ==
[~2025-04-23] VITALS: Ht 154.9 cm; Wt 78.0 kg
--- NOTE | 2025-04-23 11:46 | ECG ---
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
[2025-04-23 11:59] LABS: Hematocrit 43.4 % (36.0-46.0); Hemoglobin 15.0 g/dL (12.2-16.2); Mean Corpuscular Hemoglobin 31.4 pg (28.0-32.0); Mean Corpuscular Volume 90.6 fL (80.0-100.0); Nucleated Red Blood Cells % 0.1 %
[2025-04-23 12:04] LABS: Chloride 106 mmol/L (98-107); Potassium 3.7 mmol/L (3.5-5.1); Sodium 141 mmol/L (136-145)
[2025-04-23 12:05] LABS: Anion Gap 7 (5-15); Carbon Dioxide 28 mmol/L (20-31)
[2025-04-23 12:06] LABS: Calcium 9.6 mg/dL (8.7-10.4)
[2025-04-23 12:10] LABS: BUN/Creatinine Ratio 12.3 (10.0-20.0); Glucose 104 mg/dL (74-106)
[2025-04-23 12:11] LABS: Blood Urea Nitrogen 9 mg/dL (9-23)
--- NOTE | 2025-04-23 12:11 | ED.PDOC ---
History of Present Illness HPI Comments 54 year old female with PMHx thyroid disease, Mile's presents to the ED with a chief complaint of chest pain onset today about 30 minutes prior to ED arrival. Patient states she began experiencing palpitations shortly after began experiencing chest pain, sharp, radiating to LT arm causing LT arm weakness. Currently rates pain 8/10. She is also experiencing lightheadedness, blurred vision, shortness of breath, RT leg pain, concerned due to PMHx LT leg DVT. Patient experiences palpitations episodes frequently, have not caused chest pain in the past. She has seen Dr. Dunlap, had cardio workup, was negative. Denies nausea, vomiting, fever, chills, fall, injury, head injury, LOC, dysuria. No other symptoms or modifying factors present at this time. Chief Complaint: Chest Pain Time Seen by MD: 11:50 Primary Care Provider: Anaya Salomon Notes: Nurses Notes, Medications, Allergies Allergies: Coded Allergies: NO KNOWN ALLERGIES (Unverified , 08/30/23) Home Meds Active Scripts Cephalexin Monohydrate (Cephalexin) 500 Mg Cap, 1 CAP PO TID for 4 Days, #12 CAP Prov:GUNNAR GALDAMEZ MD 10/18/24 Metoprolol Succinate (Metoprolol Succinate Er) 25 Mg Tab, 1 TAB PO DAILY, #30 TAB 5 Refills Prov:GUNNAR GALDAMEZ MD 10/18/24 Atorvastatin Calcium (ATORVASTATIN CALCIUM) 20 Mg Tab, 40 MG PO HS, #30 TAB Prov:GUNNAR GALDAMEZ MD 10/18/24 Aspirin (Aspirin Low Dose) 81 Mg Tab, 81 MG PO DAILY, #30 TAB Prov:GUNNAR GALDAMEZ MD 10/18/24 Information Source: Patient, Relative (Sibling) Mode of Arrival: Ambulatory Severity: Moderate Timing: Minutes Duration: Since onset Prehospital treatment: None Past Medical History PAST MEDICAL HISTORY: Kidney Stones, Thyroid Past Medical History (Other): Mile's, DVT LT leg Surgical History: Cholecystectomy ELEMENTARY SECRETARY History: Denies all ELEMENTARY SECRETARY Hx Family History Family History: Reviewed,noncontributory to illness, No family hx of Cancer, No family hx of Heart tashi, No family hx ofKidney tashi, No family hx of Liver tashi, No family hx of Lung tashi, No family hx of Stroke, Family hx of DM, Family hx of HTN Social History Smoker: Non-Smoker Alcohol: Denies ETOH Use Drugs: Denies Drug Use Lives In: Home Constitutional: denies: chills, diaphoresis, fatigue, fever, malaise, sweats, weakness, others EENTM: reports: blurred vision; denies: double vision, ear bleeding, ear discharge, ear drainage, ear pain, ear ringing, eye pain, eye redness, hearing loss, mouth pain, mouth swelling, nasal discharge, nose bleeding, nose congestion, nose pain, photophobia, tearing, throat pain, throat swelling, voice changes, others Respiratory: reports: shortness of breath; denies: cough, hemoptysis, orthopnea, SOB at rest, SOB with excertion, stridor, wheezing, others Cardiovascular: reports: chest pain; denies: dizzy spells, diaphoresis, Dyspnea on exertion, edema, irregular heart beat, left arm pain, lightheadedness, palpitations, PND, syncope, others Gastrointestinal: denies: abdomen distended, abdominal pain, blood streaked bowels, constipated, diarrhea, dysphagia, difficulty swallowing, hematemesis, melena, nausea, poor appetite, poor fluid intake, rectal bleeding, rectal pain, vomiting, others Genitourinary: denies: abnormal vagina bleeding, burning, dyspareunia, dysuria, flank pain, frequency, hematuria, incontinence, pain, , vagina discharge, urgency, others Neurological: reports: weakness (LT arm), others (lightheadedness); denies: dizziness, fainting, headache, left sided numbness, left sided weakness, numbness, paresthesia, pre-existing deficit, right sided numbness, right sided weakness, seizure, speech problems, tingling, tremors Musculoskeletal: denies: back pain, gout, joint pain, joint swelling, muscle pain, muscle stiffness, neck pain, others Integumetry: denies: bruises, change in color, change in hair/nails, dryness, laceration, lesions, lumps, rash, wounds, others Allergic/Immunocompromised: denies: Difficulty Healing, Frequent Infections, Hives, Itching, others Hematologic/Lymphatic: denies: anemia, blood clots, easy bleeding, easy bruising, swollen glands, others Endocrine: denies: excessive hunger, excessive sweating, excessive thirst, excessive urination, flushing, intolerance to cold, intolerance to heat, unexplained weight gain, unexplained weight loss, others Psychiatric: denies: anxiety, bipolar disorder, depression, hopeless, panic disorder, schizophrenia, sleepless, suicidal, others All Other Systems: Reviewed and Negative Physical Exam General Appearance: Moderate Distress HEENT: Normal ENT Inspection, Pharynx Normal, TMs Normal Neck: Full Range of Motion, Non-Tender, Normal, Normal Inspection Respiratory: Chest Non-Tender, Lungs Clear, No Accessory Muscle Use, No Respiratory Distress, Normal Breath Sounds Cardiovascular: No Edema, No JVD, No Murmur, No Gallop, Normal Peripheral Pulses, Regular Rate/Rhythm Breast Exam: Deferred Gastrointestinal: No Organomegaly, Non Tender, No Pulsatile Mass, Normal Bowel Sounds, Soft Genitalia: Deferred Pelvic: Deferred Rectal: Deferred Extremities: No calf tenderness, Normal capillary refill, Normal inspection, Normal range of motion, Non-tender, No pedal edema Musculoskeletal : Apperance: Normal Neurologic: Alert, dishwashing machine operator 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 Was a procedure done?: No EKG EKG : Pulse Rate (adult): 83 [place]: LAD Cardiac Rhythm: NSR Comments low voltage Differential Dx Considerations may include: ACS, [place], electrolyte imbalance, generalized weakness X-Ray, Labs, Meds, VS Vital Signs Date Time Temp Pulse Resp B/P (MAP) Pulse Ox O2 Delivery O2 Flow Rate FiO2 04/23/25 12:33 83 04/23/25 12:17 85 04/23/25 11:24 83 04/23/25 11:17 98.2 91 20 146/92 98 98.2 Lab Test 04/23/25 12:34 04/23/25 11:35 Range/Units Troponin I High Sensitivity < 3 L < 3 L </=34 ng/L White Blood Count 6.2 4.4-10.8 10^3/uL Red Blood Count 4.79 4.0-5.20 10^6/uL Hemoglobin 15.0 12.2-16.2 g/dL Hematocrit 43.4 36.0-46.0 % Mean Corpuscular Volume 90.6 80.0-100.0 fL Mean Corpuscular Hemoglobin 31.4 28.0-32.0 pg Mean Corpuscular Hemoglobin Concent 34.6 32.0-36.0 g/dL Red Cell Distribution Width 12.9 11.8-14.3 % Platelet Count 250 140-450 10^3/uL Mean Platelet Volume 9.5 6.9-10.8 fL Neutrophils (%) (Auto) 66.8 37.0-80.0 % Lymphocytes (%) (Auto) 24.3 10.0-50.0 % Monocytes (%) (Auto) 6.3 0.0-12.0 % Eosinophils (%) (Auto) 1.8 0.0-7.0 % Basophils (%) (Auto) 0.8 0.0-2.0 % Neutrophils # (Auto) 4.1 1.6-8.6 10 ^3/uL Lymphocytes # (Auto) 1.5 0.4-5.4 10 ^3/uL Monocytes # (Auto) 0.4 0-1.3 10 ^3/uL Eosinophils # (Auto) 0.1 0-0.8 10 ^3/uL Basophils # (Auto) 0 0-0.2 10 ^3/uL Nucleated Red Blood Cells 0.1 % D-Dimer, Quantitative < 0.19 0.0-0.49 mg/L FEU Sodium Level 141 136-145 mmol/L Potassium Level 3.7 3.5-5.1 mmol/L Chloride Level 106 98-107 mmol/L Carbon Dioxide Level 28 20-31 mmol/L Anion Gap 7 5-15 Blood Urea Nitrogen 9 9-23 mg/dL Creatinine 0.73 0.550-1.02 mg/dL Glomerular Filtration Rate Calc 99 >90 mL/min BUN/Creatinine Ratio 12.3 10.0-20.0 Serum Glucose 104 74-106 mg/dL Hemoglobin A1c Pending Calcium Level 9.6 8.7-10.4 mg/dL IMPRESSION: 1. No right femoropopliteal venous thrombosis. 2. If clinical concern/symptoms persist or worsen, short-interval follow-up study is suggested. 3. Small right Ortiz cyst. Hep-Lock was established The patient's CBC is within normal limits The troponin level is negative x2 The D-dimer is negative The chemistry panel is within normal limits The patient continues to have chest pain The repeat EKG shows sinus rate at 74 that has low voltage The patient will be admitted at this time The diagnosis acute myocardial ischemia Images Reviewed?: Images reviewed and evaluated by me Time of 1ST Reevaluation: 12:20 Reevaluation 1ST: Unchanged Patient Education/Counseling: Diagnosis, Treatment, Prognosis Family Education/Counseling: Diagnosis, Treatment, Prognosis SEPSIS Sepsis Screen Date sepsis recognized/suspect: Apr 23, 2025 Time Sepsis recognized/suspect: 1152 Recent Procedure: No On Antibiotic Therapy: No Respiratory Rate >20: No Heart Rate >90: No Temp<36 C (96.8 F) or >38.3 C: No SBP <90 or MAP <65 mmHG: No New Acute Mental Status Change: No Is the patient on CPAP, BIPAP,: No Physician Orders Urinalysis (04/23/25 11:34) Heplock Iv (04/23/25 11:34) Registered Client Associate (04/23/25 11:34) Blood Pressure (04/23/25 11:34) Pulse Oximetry (04/23/25 11:34) Rt Lower Dvt (04/23/25 11:34) Troponin-I Hs (04/23/25 14:34) Electrocardigram (04/23/25 12:34) Electrocardigram (04/23/25 14:34) Vital Signs Date Time Temp Pulse Resp B/P (MAP) Pulse Ox O2 Delivery O2 Flow Rate FiO2 04/23/25 12:33 83 04/23/25 12:17 85 04/23/25 11:24 83 04/23/25 11:17 98.2 91 20 146/92 98 98.2 Laboratory Tests Test 04/23/25 11:35 White Blood Count 6.2 10^3/uL (4.4-10.8) Departure 1 Departure Time of Disposition: 14:25 Impression: Primary Impression: Acute myocardial ischemia Disposition: 09 ADMITTED INPATIENT Admit to: [facility] Condition: Fair Critical Care Note Critical Care Time?: Yes (35 min-critical care time only) Stability Stability form required: Yes Unstable for transfer: Telemetry monitoring (Telemetry monitoring required), ED Physician Assesment (Clinical assesment) Heart Score Heart Score: Heart Score Response (Comments) Value History Moderate Suspicious 1 EKG Repolarization Disturb 1 Age 45-64 1 Risk Factors 1 or 2 risk factors 1 Troponin Normal limit 0 Total 4 I personally scribed for ROSA DYER MD ([email or web address]) on 04/23/25 at 12:11. Electronically submitted by Juanis Jean ([email or web address]). I personally scribed for ROSA DYER MD ([email or web address]) on 04/23/25 at 12:33. Electronically submitted by Juanis Jean ([email or web address]). ROSA DYER MD Apr 23, 2025 12:11
--- NOTE | 2025-04-23 12:26 | DVH ---
Right lower extremity venous duplex CLINICAL HISTORY: right leg pain COMPARISON: US BILAT LOWER DVT on DOS: 01/07/25, US LT LOWER DVT on DOS: 07/31/24, US LT LOWER DVT on DOS: 05/24/24, US LT LOWER DVT on DOS: 04/17/24, US RT LOWER DVT on DOS: 12/20/23 FINDINGS: Duplex doppler evaluation of the deep venous system of the right lower extremity from the common femoral vein to the popliteal vein including color doppler and spectral/pulsed waveform analysis was performed. The common femoral vein demonstrates appropriate compressibility and waveform variability. There is compressibility/patency of the great saphenous vein at the proximal thigh. The femoral vein demonstrates appropriate compressibility and waveform variability. The deep femoral vein demonstrates appropriate compressibility and waveform variability. The popliteal vein demonstrates appropriate compressibility and waveform variability. There is normal compressibility at the tibioperoneal trunk. 2.1 x 1.7 x 0.3 cm right ortiz cyst. IMPRESSION: 1. No right femoropopliteal venous thrombosis. 2. If clinical concern/symptoms persist or worsen, short-interval follow-up study is suggested. 3. Small right Ortiz cyst.
[2025-04-23] MEDS ORDERED: HYDROcodone-ACET 5/325MG TAB PO PRN (14:00)
[2025-04-23] MEDS ORDERED: SODIUM CHLORIDE 0.9% 1,000 ML IV SCH (14:00)
[2025-04-23] MEDS ORDERED: ACETAMINOPHEN 325 MG TAB PO PRN (14:00)
--- NOTE | 2025-04-23 14:10 | DVHHP2 ---
History of Present Illness History of Present Illness This is a 54-year-old female with past medical history of Mile disease, history of DVT, and hormonal supplement use who presents with chest pain. The pain began today at 11 a.m., described as sharp and associated with palpitations shortly after onset; she also reported arm weakness and transient blurry vision. She states the pain reached 8/10 and noted her blood pressure was elevated at home. She was evaluated previously by cardiology (Dr. Dunlap) in October 2024 for palpitations and had a normal echocardiogram with EF 65%. She also reports righ t-leg pain but lower-extremity ultrasound today showed no evidence of DVT; D- dimer is negative and PE has been ruled out. She denies medication use for thyroid disease despite the diagnosis. PMHx Hyperthyroidism, Mile disease, prior DVT, kidney stones, cholecystectomy, history of helicus repair per patient. PSH Cholecystectomy. Social History Denies smoking, alcohol, or drug use. Lives at home. ROS Negative for fever, chills, cough, dyspnea, nausea, vomiting. Positive for chest pain and palpitations. No syncope reported today. No focal neurologic deficits aside from brief blurry vision. Review of Systems Allergies: Coded Allergies: NO KNOWN ALLERGIES (Unverified , 08/30/23) Medications Current Medications Medications Dose Ordered Sig/Yunior Route Start Time Stop Time Status Last Admin Dose Admin Sodium Chloride 1,000 ml @ 60 mls/hr [id number] IV 04/23/25 14:00 UNV Acetaminophen 650 mg Q6HP PRN PO 04/23/25 14:00 UNV Acetaminophen/ Hydrocodone Bitart 1 tab Q4HP PRN PO 04/23/25 14:00 UNV Morphine Sulfate 2 mg Q4HPRN PRN IV 04/23/25 14:00 UNV Enoxaparin Sodium 40 mg DAILY SC 04/24/25 10:00 UNV Exam Vital Signs Vital Signs Date Time Temp Pulse Resp B/P (MAP) Pulse Ox O2 Delivery O2 Flow Rate FiO2 04/23/25 12:33 83 04/23/25 11:17 98.2 20 146/92 98 98.2 Exam Vitals: T afebrile, HR 91 --> 74, RR 20, BP 146/92, SpO2 98% RA. General: Alert, no acute distress. CV: Regular rhythm, no murmurs, no gallops. Resp: Lungs clear bilaterally, no wheezing or crackles. Neuro: Non-focal exam, strength intact, no deficits. Extremities: No edema, pulses palpable, no reproducible leg tenderness. Labs/Xrays Labs Test 04/23/25 12:34 04/23/25 11:35 Range/Units Troponin I High Sensitivity < 3 L </=34 ng/L White Blood Count 6.2 4.4-10.8 10^3/uL Red Blood Count 4.79 4.0-5.20 10^6/uL Hemoglobin 15.0 12.2-16.2 g/dL Hematocrit 43.4 36.0-46.0 % Mean Corpuscular Volume 90.6 80.0-100.0 fL Mean Corpuscular Hemoglobin 31.4 28.0-32.0 pg Mean Corpuscular Hemoglobin Concent 34.6 32.0-36.0 g/dL Red Cell Distribution Width 12.9 11.8-14.3 % Platelet Count 250 140-450 10^3/uL Mean Platelet Volume 9.5 6.9-10.8 fL Neutrophils (%) (Auto) 66.8 37.0-80.0 % Lymphocytes (%) (Auto) 24.3 10.0-50.0 % Monocytes (%) (Auto) 6.3 0.0-12.0 % Eosinophils (%) (Auto) 1.8 0.0-7.0 % Basophils (%) (Auto) 0.8 0.0-2.0 % Neutrophils # (Auto) 4.1 1.6-8.6 10 ^3/uL Lymphocytes # (Auto) 1.5 0.4-5.4 10 ^3/uL Monocytes # (Auto) 0.4 0-1.3 10 ^3/uL Eosinophils # (Auto) 0.1 0-0.8 10 ^3/uL Basophils # (Auto) 0 0-0.2 10 ^3/uL Nucleated Red Blood Cells 0.1 % D-Dimer, Quantitative < 0.19 0.0-0.49 mg/L FEU Sodium Level 141 136-145 mmol/L Potassium Level 3.7 3.5-5.1 mmol/L Chloride Level 106 98-107 mmol/L Carbon Dioxide Level 28 20-31 mmol/L Anion Gap 7 5-15 Blood Urea Nitrogen 9 9-23 mg/dL Creatinine 0.73 0.550-1.02 mg/dL Glomerular Filtration Rate Calc 99 >90 mL/min BUN/Creatinine Ratio 12.3 10.0-20.0 Serum Glucose 104 74-106 mg/dL Calcium Level 9.6 8.7-10.4 mg/dL SEPSIS Sepsis Screen Date sepsis recognized/suspect: Apr 23, 2025 Time Sepsis recognized/suspect: 1151 Recent Procedure: No On Antibiotic Therapy: No Respiratory Rate >20: No Heart Rate >90: No Temp<36 C (96.8 F) or >38.3 C: No SBP <90 or MAP <65 mmHG: No New Acute Mental Status Change: No Is the patient on CPAP, BIPAP,: No Physician Orders Urinalysis (04/23/25 11:34) Heplock Iv (04/23/25 11:34) [employer] Officer (04/23/25 11:34) Blood Pressure (04/23/25 11:34) Pulse Oximetry (04/23/25 11:34) Rt Lower Dvt (04/23/25 11:34) Troponin-I Hs (04/23/25 14:34) Electrocardigram (04/23/25 12:34) Electrocardigram (04/23/25 14:34) Admit (04/23/25 13:52) Code Status (04/23/25 13:52) Vital Signs .PER UNIT PROTOCOL (04/23/25 13:52) Review Orders With Adm.Md (04/23/25 13:52) [facility]Diabetes (04/23/25 Dinner) Sodium Chloride 0.9% (04/23/25 14:00) Acetaminophen Tablet (Tylenol Tablet) (04/23/25 14:00) Notify Md Of Changes From Base (04/23/25 13:52) Advance Directive (04/23/25 13:52) Echo 2d Mode Cardiac Dop (04/23/25 13:52) Patient Condition (04/23/25 13:52) Allergies (04/23/25 13:52) Hydrocodone-Acet 5/325mg Tab (Mize 5/32 (04/23/25 14:00) Drug Screen (04/23/25 13:52) Ambulate Every 4hours Q4H (04/23/25 13:52) Hemoglobin A1c (04/23/25 13:52) Morphine Sulfate Injection (04/23/25 14:00) Enoxaparin Sodium (Lovenox) (04/24/25 10:00) Oxygen By Nasal Cannula (04/23/25 13:52) Stat Ekg For Chest Pain (04/23/25 13:52) Notify Md Of Changes From Base (04/23/25 13:52) Tow Truck Operator For 24 Hours (04/23/25 13:52) Emergency Dysrhythmia Protocol (04/23/25 13:52) Rhythm Strips Once Every Shift (04/23/25 13:52) Vital Signs Date Time Temp Pulse Resp B/P (MAP) Pulse Ox O2 Delivery O2 Flow Rate FiO2 04/23/25 12:33 83 04/23/25 12:17 85 04/23/25 11:24 83 04/23/25 11:17 98.2 91 20 146/92 98 98.2 Laboratory Tests Test 04/23/25 11:35 White Blood Count 6.2 10^3/uL (4.4-10.8) Assessment/Plan Assessment/Plan #Rule out ACS # Rule out Unstable angina Given the acute onset of severe chest pain with associated palpitations and transient neurologic symptoms, cardiac ischemia must be ruled out despite negative initial troponins. She will be admitted for ACS workup, EKG monitoring, initiation of aspirin, and telemetry. # Hyperthyroidism Untreated hyperthyroidism may be contributing to palpitations and blood pressure variability. TSH will be ordered; consider restarting antithyroid therapy after lab confirmation # History of DVT #PE ruled out She presents with leg discomfort, but lower-extremity duplex today shows no t hrombus and D-dimer is negative. Supportive care, monitor for recurrence # Hypertension Blood pressure was elevated at home and mildly elevated on arrival, likely stress-related but needs reassessment in the context of chest pain evaluation. Continue monitoring, and adjust medications if persistent elevation is noted after ACS rule-out. # Hormonal therapy use (risk modifier) Her hormonal supplements increase baseline thrombotic and arrhythmogenic risk. Case discussed with Dr Acevedo Full code Plan discussed with: Patient, Other (rn) My Orders Orders - RA DUARTE Procedure Category Date Status Time Admit ADMIT 04/23/25 Transmitted 13:52 Code Status CODE 04/23/25 Transmitted 13:52 Vital Signs [facility] 04/23/25 In Process 13:52 Review Orders With [facility] 04/23/25 In Process Adm. 13:52 Consistent DIET 04/23/25 Transmitted Carb(Ccho)Diabetes Dinner Sodium Chloride 0.9% PHA 04/23/25 Logged 14:00 Acetaminophen Tablet PHA 04/23/25 Logged (Tylenol Tablet) 14:00 Notify Md Of Changes [facility] 04/23/25 In Process From Base 13:52 Advance Directive [facility] 04/23/25 In Process 13:52 Echo 2d Mode Cardiac US 04/23/25 Logged DOP 13:52 Patient Condition ORDERS 04/23/25 Transmitted 13:52 Allergies [facility] 04/23/25 In Process 13:52 Hydrocodone-Acet PHA 04/23/25 Logged 5/325mg Tab (Mize 14:00 Drug Screen LAB 04/23/25 Logged 13:52 Ambulate Every 4hours [facility] 04/23/25 In Process 13:52 Hemoglobin A1c LAB 04/23/25 In Process 13:52 Morphine Sulfate PHA 04/23/25 Logged Injection 14:00 Enoxaparin Sodium LOCATED [facility] 04/24/25 Logged (Lovenox) 10:00 Oxygen By Nasal RT 04/23/25 Transmitted Cannula 13:52 Stat Ekg For Chest [facility] 04/23/25 In Process Pain 13:52 Notify Md Of Changes [facility] 04/23/25 In Process From Base 13:52 Tow Truck Operator For [facility] 04/23/25 In Process 24 Hours 13:52 Emergency Dysrhythmia [facility] 04/23/25 In Process Protocol 13:52 Rhythm Strips Once [facility] 04/23/25 In Process Every Shift 13:52 Date of Service: Apr 23, 2025 Billing Provider: JAI ACEVEDO MD Common Visit Codes: 81095-RETSNIF INP/OBS CARE (HIGH) Secondary Visit Codes: 60803-[id number] CARE PLAN 30 MINUTES RA DUARTE RESIDENT Apr 23, 2025 14:10
[2025-04-23] MEDS ORDERED: MORPHINE SULFATE 4 MG/ML SYR/VIAL IV PRN (14:45)
[2025-04-23 15:08] LABS: Cholesterol 209 mg/dL (< 200); HDL Cholesterol 40 mg/dL (40-59); Triglycerides 444 mg/dL (< 150)
[2025-04-23 15:17] VITALS: BP 137/83; PULSE 82; RESP 16; TEMP 98; O2SAT 98
--- NOTE | 2025-04-23 16:29 | ECG ---
[facility] Test Date: 2025-04-23 Test Time: 12:27:09 Pat Name: RA DINERO Department: ED Room: [address] [place] [address] A Gender: F Can Sorter: SPIKE : 1970 Requested By: ROSA DYER Order Number: [id number] Reading MD: Thee Muñoz Measurements Intervals [place] Rate: 72 P: 54 CT: 225 QRS: -50 QRSD: 75 T: -18 QT: 382 QTc: 419 Interpretive Statements Sinus rhythm Prolonged CT interval Left ventricular hypertrophy Inferior infarct, age indeterminate Probable anterior infarct, age indeterminate Lateral leads are also involved Artifact in lead(s) II,III,aVR,aVL,aVF,V1,V3,V4,V6 Electronically Signed On 04-24-2025 20:10:09 PST by Thee Muñoz Please click the below link to view image of tracing.
--- NOTE | 2025-04-23 16:29 | ECG ---
[facility] Test Date: 2025-04-23 Test Time: 12:17:26 Pat Name: RA DINERO Department: ED Room: [address] [place] [address] A Gender: F Saxophone Player: SPIKE : 1970 Requested By: RSOA DYER Order Number: [id number] Reading MD: Thee Muñoz Measurements Intervals [place] Rate: 85 P: 56 NE: 138 QRS: 21 QRSD: 108 T: -9 QT: 400 QTc: 476 Interpretive Statements Sinus rhythm Low voltage, precordial leads Borderline repolarization abnormality Borderline ST elevation, lateral leads Electronically Signed On 04-24-2025 20:10:07 PST by Thee Muñoz Please click the below link to view image of tracing.
[2025-04-24] MEDS ORDERED: METOPROLOL SUCCINATE XL 50 MG TAB PO SCH (10:00)
[2025-04-24] MEDS ORDERED: ENOXAPARIN SOD 40 MG/0.4 ML SYRINGE SC SCH (10:00)
== END 2025-04-23 19:40 | disposition left against medical advice (07) | DRG 311 ==
LOC: ER 11:17 → OVERFLOW 13:52
PROVIDERS: ADMIT Nurse Practitioner Acute Care; ATTEND Nurse Practitioner Acute Care
DX: I24.9 Acute ischemic heart disease, unspecified (principal); E05.90 Thyrotoxicosis, unspecified without thyrotoxic crisis or storm; I10 Essential (primary) hypertension; Z53.29 Procedure and treatment not carried out because of patient's decision for other reasons; Z87.442 Personal history of urinary calculi; Z86.718 Personal history of other venous thrombosis and embolism; Z90.49 Acquired absence of other specified parts of digestive tract
CPT/HCPCS: 36415; 80048; 80061; 83036; 84443; 84484; 85025; 85379; 93005; 93971; 99291; G0378